=== PATIENT | male | born 1965 | race Caucasian/White ===

== ENCOUNTER → 2017-10-07 17:24 | Outpatient (CLI) | payer BC, SELFPAY | PROVIDERS: Family Provider Family Medicine; PCP Family Medicine; Visit Provider Family Medicine | DX: N39.0 Urinary tract infection, site not specified (principal) | CPT/HCPCS: 87086; 87088; 87186 ==

== ENCOUNTER 2019-02-04 07:55 | Inpatient (IN) | payer BC, OTHER, SELFPAY ==
[2019-01-22 14:33] VITALS: BP 122/66; PULSE 76; RESP 17; TEMP 36.9; O2SAT 98; BMI 37.2
--- NOTE | 2019-01-22 15:30 | RAD_ITS ---
STUDY: MULTIPLE LENGTH STUDY SCANOGRAM. REASON FOR EXAM: Male, 53 years old. Prior left hip replacement. TECHNIQUE: Frontal views of both lower extremities were obtained. COMPARISON: None. FINDINGS: The patient is status post left hip replacement. An osteochondroma is seen along the medial aspect of the mid shaft of the left femur. There is shortening of the right lower extremity of approximately 1.5 cm as compared to the left side. RAD/Bone Length IMPRESSION: Asymmetry of the bone length of the lower extremities with the right lower extremity being 1.5 cm shorter than the left. Electronically Signed: Juan Ayala, at 9:07 EDT , Service support ,
[2019-01-22 16:32] LABS: Absolute Neutrophil Count 5.5 X10^3/uL (2.0-7.7); Basophil# 0.03 X10^3/uL; Basophil% 0.4 % (0-1); Eosinophil# 0.07 X10^3/uL; Eosinophils% 0.9 % (0-5); Hematocrit 46.2 % (40-54); Hemoglobin 15.8 g/dL (13.0-16.5); Lymphocyte % 19.8 % (19-41); Mean Corp Hgb Conc 34.2 g/dL (32-36); Mean Corpuscular Volume 93.7 fL (80-94); Monocyte# 0.82 X10^3/uL; Monocyte% 10.1 % (0-10); NRBC Flagged by Analyzer 0 % (0-5); Neutrophil # 5.54 X10^3/uL (2.7-7.7); Neutrophil % 68.4 % (47-70); Platelet Count 241 K/mm3 (150-450); RBC Distribution Width SD 41.6 fl (35.1-43.9); Red Blood Count 4.93 M/mm3 (4.6-6.2); White Blood Count 8.1 K/mm3 (4.4-11.0)
[2019-01-22 16:38] LABS: Prothrombin Time (Protime)PT. 13.2 SECONDS (11.7-14.9)
[2019-01-22 16:39] LABS: Partial Thromboplast Time 26.9 Seconds (24.1-36.2)
[2019-01-22 17:00] LABS: Anion Gap 9 (5-15); BUN 18 mg/dL (7-18); BUN/Creat Ratio 15.4 RATIO (10-20); Calcium,Total 9.5 mg/dL (8.5-10.1); Chloride 103 mmol/L (98-107); Creatinine, Serum 1.17 mg/dL (0.70-1.30); EST Glomerular Filtration Rate 69 mL/min (>60); Est Glom Filt Rate - Afr Amer 84 mL/min (>60); Estimated Creatinine Clearance 82.52 ml/min; Glucose 77 mg/dL (74-106); Potassium 4.1 mmol/L (3.5-5.1); Sodium Level 141 mmol/L (136-145)
--- NOTE | 2019-01-30 11:28 | CASEMGMT ---
Call placed to patient to discuss discharge planning after upcoming surgery. Patient plans to return home with assistance from family. Patient has outpatient physical therapy set up at [facility] and will have transportation assistance. Patient already has a walker, shower seat, toilet riser, and grab bars in the bathroom (patient had a previous hip surgery). Patient has a bedroom and bathroom on the 1st level of the home. Informed patient that RN-CM will likely follow up after surgery to further assist with any discharge needs that may arise. Karla Rueda LPN Clinical Support
[2019-02-04] VITALS (12 sets, daily range): BP systolic 108–120; BP diastolic 65–82; PULSE 59–88; RESP 14–18; TEMP 36–37.2; O2SAT 77–100; BMI 37.2
[2019-02-04] MEDS: Celecoxib 200 MG Capsule 400 MG PO (08:34)
[2019-02-04] MEDS: Acetaminophen 500 MG Tablet 1000 MG PO ×3 (08:34→22:49)
[2019-02-04] MEDS: Gabapentin 600 MG Tablet PO (08:35)
[2019-02-04] MEDS: Scopolamine 1mg/72hr Patch 1 PATCH TRANSDERM. (08:36)
[2019-02-04] MEDS: Magnesium Sulfate 4gm/100mL 4 GM/100 ML IV.SOLN. IV (08:39)
[2019-02-04 08:56] LABS: Bedside Glucose 89 mg/dL (70-110)
[2019-02-04] MEDS: Lactated Ringers 1,000 ML 999 ML IV (10:45)
--- NOTE | 2019-02-04 10:45 | RAD_ITS ---
STUDY: X-RAY - PELVIS AND RIGHT HIP REASON FOR EXAM: Postop. TECHNIQUE: 2 views of the pelvis and hip. COMPARISON: Intraoperative images obtained earlier the same day. FINDINGS: There is soft tissue gas adjacent to the right hip from recent surgery. Normal bilateral superior and inferior pubic rami. Normal pubic symphysis. Normal bilateral ischial tuberosities. There is a right hip arthroplasty without evidence of complication. RAD/Hip Min 2 Views (Portable) IMPRESSION: Uncomplicated right hip arthroplasty. Electronically Signed: Alex Jones MD at 14:22 EDT Tel , Service support ,
--- NOTE | 2019-02-04 11:44 | RAD_ITS ---
STUDY: X-RAY - RIGHT HIP REASON FOR EXAM: Fluoroscopy for right hip arthroplasty. TECHNIQUE: 3 intraoperative images of the right hip. COMPARISON: None. FINDINGS: There is a right hip arthroplasty without evidence complication. Electronically Signed: Alex Jones MD at 14:22 EDT Tel , Service support , RAD/Hip 1 view with Pelvis
--- NOTE | 2019-02-04 12:11 | PCM.OPRPT ---
Report of Operation Date of Procedure: 02/04/19 Pre-Operative Diagnosis: Right hip primary osteoarthritis Post-Operative Diagnosis: Right hip primary osteoarthritis Surgery/Procedure Performed:: Right direct anterior minimally invasive total hip replacement Description of Surgical Findings:: Stable hip. We were unable to fully make up the patient's 1/2 cm leg length discrepancy. We lengthened to what we felt was appropriate based on patient's preoperative anatomy and soft tissue tensioning. color adviser: Gretel Patino Type of Anesthesia:: Spinal Anesthesiologist: Kevin Moore Special Medications: 2 g Ancef, 1 g TXA at incision, 1 g TXA closure, 10 mg Decadron, joint cocktail (5 mg Duramorph, 30 mL of 0.5% Ropivicaine, 1000 units of epinephrine, 30 mg of Toradol) Specimen's removed: Bony cuts Estimated Blood Loss (mL): 250 Fluids Replaced: 1300 mL crystalloid Description of Procedure: Components used: 1. Accolade 2 [place] femoral stem size 5 132? 2. [place] trident 2 acetabular shell size 60 mm 3. [place] X3 polyethylene g 4. [place] Biolox delta 36mm, +5mm femoral head Brief history operative indications: 53 yo M who failed conservative measures for their hip osteoarthritis. X-rays were consistent with osteoarthritis including joint space narrowing, osteophyte formation and subchondral cysts. Total hip replacement was discussed with the patient with risks and benefits including but not limited to blood loss, DVTs, PEs, neurovascular damage, dislocation, general risks of anesthesia including loss of life. Patient demonstrated an understanding medical clearance is obtained the patient was consented for surgery. Procedure: On the date of procedure the patient's R hip was marked in the preoperative area. Patient was then taken back to the operating room where anesthesia assumed control of the C-spine and airway and administered anesthetic. Patient was transferred to the operating table and placed in the supine position. The hips were placed at the break of the bed and a sacral bump was placed. The R lower extremity was then prepped out in a sterile fashion using chlorhexidine while the surgeon scrubbed. The PA was vital in the positioning of the patient. Upon reentering the room the R lower extremity was draped in the standard orthopedic fashion and the incision was marked. A timeout was called and everyone agreed upon the side, the site, the procedure be performed, antibody given, and patient's identity. At this time incision was made through skin, subcutaneous tissue, and fat down to fascia. The fascia was then incised and the TFL was retracted laterally. A retractor was placed on the lateral border of the femoral neck. Attention was directed to the inferior portion of the approach and all crossing vessels were identified and appropriately coagulated. A retractor was then placed on the medial portion of the femoral neck. The anterior capsule was then cleared of all soft tissue and then H shaped capsulotomy was made. The retractors were then placed inside the capsule. The femoral neck was identified and a cleanup cut was made. At this time a power corkscrew was used to remove the femoral head. Attention was then turned toward the acetabulum where the soft tissues were appropriately retracted and the acetabulum was sequentially reamed to 60 mm. A 60 mm cup was then selected and impacted into place. Acetabular liner was impacted into place and locking mechanism was verified. The position of the acetabular cup was then verified under live fluoroscopy. Attention was then turned to the femur. Soft tissue releases on the medial and lateral femoral neck were appropriately done, the leg was externally rotated and lateralized. A [place]illa retractor was placed medially and proximally to the greater trochanter this allowed appropriate visualization and exposure of the femoral canal. Rongeour was then used to remove excess lateral bone. A canal finder and entry broach were used to open the proximal canal. Once we verified we were down the femoral canal we subsequently broached up to a size 5 femur. The appropriate neck was placed in the previously selected head was trialed during the trialing based on preoperative radiographs showing a 1.5 cm leg length discrepancy in patient's anatomy we sequentially trialed up to a 5 mm neck. At that point despite not making up the entire 1.5 cm leg length discrepancy patient's anatomy was restored. Also the tension of the soft tissues was such that any further lengthening would not be well tolerated due to the tightness. Chest reexamining his preoperative x-rays and the contralateral hip it was felt that the contralateral hip is been over lengthened at the time of his left hip replacement. So therefore, we restored as much length is was felt to be possible to match his anatomy and appropriate tensioning of the soft tissues. Traction was pulled and the hip was reduced with internal rotation. Once it was appropriately reduced and stability was checked. There was minimal shuck, and appropriate stability with hyperextension and external rotation as well as with 90? flexion and internal rotation. Fluoroscopy was then also used to verify the position of the components and leg lengths using the contralateral side for comparison. The trial components were then dislocated the proximal femur was again exposed and the components were removed from the wound. The final components were verified and opened. The wound was copiously irrigated out with normal saline. The acetabulum was checked for any residual debris. The final components were placed and impacted. Traction and internal rotation were again used to reduce the hip. After adequate reduction the hip remained stable with appropriate leg lengths. The final components were once again checked with live fluoroscopy and were found to be satisfactory. The wound was then copiously irrigated with normal saline once more, and hemostasis was obtained. Closure was then done using #1 Vicryl runner to close the fascia. A 2-0 vicryl interuppted sutures were used to close the subcutaneous skin. A 3-0 Monocryl and Steri-Strips were used for final skin closure. A Silverlon dressing was placed. Patient was awakened by anesthesia and transferred to the [facility]. Patient was then transferred to the PACU for recovery. Postoperative plan: Patient will get 24 hours postop antibiotics. Patient will get in-house physical therapy and will be weight-bear as tolerated. Patient will follow up in office in 2 weeks for a wound check and x-rays. Grafts/Implants Used: [place] - Complications No intraoperative complications - Admit VTE Documentation VTE Present on Admission: No VTE Mechan Device Prophylaxis: SCD's, Thigh High ARON Hose VTE Pharm Prophylaxis ordered?: Yes
[2019-02-04] MEDS: Lactated Ringers 1,000 ML 125 ML IV (14:50)
[2019-02-04] MEDS: Ensure Surgery 237 ML LIQUID PO (16:37)
[2019-02-04] MEDS: Cefazolin 1 GM/50 ML BAG IV (18:38)
[2019-02-04] MEDS: Aspirin 81 MG TAB.CHEW PO (22:49)
[2019-02-04] MEDS: Senna/Docusate Sodium 1 Tablet 2 TABLET PO (22:49)
[2019-02-05] MEDS: Cefazolin 1 GM/50 ML BAG IV (03:20)
[2019-02-05 03:25] VITALS: BP 113/70; PULSE 69; RESP 18; TEMP 36.5; O2SAT 94
[2019-02-05 06:04] LABS: Hematocrit 40.4 % (40-54); Hemoglobin 13.9 g/dL (13.0-16.5); Mean Corp Hgb Conc 34.4 g/dL (32-36); Mean Corpuscular Hgb 32.5 pg (27.0-32.0); Mean Corpuscular Volume 94.4 fL (80-94); Mean Platelet Vol. 8.6 fl (6.2-12.0); Platelet Count 205 K/mm3 (150-450); RBC Distribution Width CV 11.9 % (11.6-14.6); RBC Distribution Width SD 41.2 fl (35.1-43.9); Red Blood Count 4.28 M/mm3 (4.6-6.2); White Blood Count 20.8 K/mm3 (4.4-11.0)
[2019-02-05] MEDS: 0.9% NaCl Peripheral Flush Adult/Peds IV (06:26)
[2019-02-05] MEDS: Acetaminophen 500 MG Tablet 1000 MG PO (06:32)
[2019-02-05 06:47] LABS: Anion Gap 6 (5-15); BUN 19 mg/dL (7-18); BUN/Creat Ratio 15.6 RATIO (10-20); Calcium,Total 8.8 mg/dL (8.5-10.1); Chloride 107 mmol/L (98-107); Creatinine, Serum 1.22 mg/dL (0.70-1.30); EST Glomerular Filtration Rate 66 mL/min (>60); Est Glom Filt Rate - Afr Amer 80 mL/min (>60); Estimated Creatinine Clearance 79.14 ml/min; Glucose 105 mg/dL (74-106); Potassium 4.4 mmol/L (3.5-5.1); Sodium Level 140 mmol/L (136-145)
[2019-02-05 07:29] VITALS: BP 118/84; PULSE 61; RESP 18; TEMP 36.6; O2SAT 95
[2019-02-05] MEDS: Ensure Surgery 237 ML LIQUID PO (07:40)
[2019-02-05] MEDS: oxyCODONE 5 MG Tablet PO (07:40)
[2019-02-05] MEDS: Aspirin 81 MG TAB.CHEW PO (07:40)
[2019-02-05] MEDS: Senna/Docusate Sodium 1 Tablet 2 TABLET PO (07:41)
[2019-02-05] MEDS: Famotidine 20 MG Tablet PO (07:41)
[2019-02-05] MEDS: Lisinopril 20 MG Tablet PO (07:41)
[2019-02-05] MEDS: hydroCHLOROthiazide 12.5mg 12.5 MG PO (07:41)
--- NOTE | 2019-02-05 09:19 | PCM.PN.ORT ---
Subjective: The patient was sitting in bedside chair upon examination. Patient denies any chest pain, shortness of breath, dizziness, lightheadedness, nausea or vomiting, or calf pain. Pain is controlled on medications. No adverse overnight events. Patient is doing very well with regards to physical therapy. He has been up walking the halls. His pain is been well controlled. Patient is wishing to go home today. Objective: Vital signs stable and afebrile. Patient is able to plantarflex and dorsiflex actively. Sensation is intact to light touch to saphenous, sural, superficial and deep peroneal, and tibial distribution. Dressing is clean dry and intact. Negative Homans bilaterally, negative signs and symptoms of DVT. - Physical Exam General: Alert, Oriented x3, Cooperative, No apparent distress Vital Signs Temp Pulse Resp BP Pulse Ox 97.9 F 61 18 118/84 H 95 02/05/19 07:29 02/05/19 07:29 02/05/19 07:29 02/05/19 07:29 02/05/19 07:29 Oxygen Flow Rate (L/min) 6 Oxygen Delivery Method Room Air Weight: 128.1 kg Body Mass Index (BMI) 37.2 Intake and Output for Last 24 Hours 02/03/19 02/04/19 02/05/19 23:59 23:59 23:59 Intake Total 3056 / 3056 431 / 431 Output Total 1850 / 1850 1050 / 1050 Balance 1206 / 1206 -619 / -619 Laboratory Tests Past 24 Hrs 02/05/19 02/05/19 05:30 05:30 WBC 20.8 H RBC 4.28 L Hgb 13.9 Hct 40.4 MCV 94.4 H MCH 32.5 H MCHC 34.4 RDW Std Deviation 41.2 RDW Coeff of Can 11.9 Plt Count 205 MPV 8.6 Sodium 140 Potassium 4.4 Chloride 107 Carbon Dioxide 27.0 Anion Gap 6 BUN 19 H Creatinine 1.22 Estim Creat Clear Calc 79.14 Est GFR (MDRD) Af Amer 80 Est GFR (MDRD) Non-Af 66 BUN/Creatinine Ratio 15.6 Glucose 105 Calcium 8.8 Medical Necessity - Tobacco Use Smoking Status: Never smoker Tobacco Use: Chew Assessment/Plan 1. S/P right direct anterior total hip arthroplasty POD #1 2. Continue Pain Medications: Tylenol and OxyIR 3. DVT Prophylaxis: Aspirin 81 mg twice daily for 4 weeks postoperatively 4. PT/OT: Weightbearing as tolerated 5. H & H: 13.9/40.4, asymptomatic 6. Reactive leukocytosis: Currently 20.8, afebrile. Patient did receive Decadron intraoperatively 7. Encouraged Incentive Spirometry 8. Disposition: Orthopedically stable, plan will be for discharge home today. Prescriptions will be attached to chart. Patient will follow-up per postop instructions. Patient does have outpatient physical therapy established.
--- NOTE | 2019-02-05 09:27 | DCINST_ITS ---
Discharge Diet: No Restrictions Discharge Activity: May Not Drive - while taking narcotic pain medications. May shower in (days): 1 - Turn dressing away from water Ice area for (Minutes): 20 - Every 1-2 hours while awake Weight Bearing Status: Weight bearing as tolerated Elevate: Operative Extremity Additional Activity Instructions:: Wear elastic stockings for 2 weeks. DO NOT use alcohol with narcotic pain medication. DO NOT make important decisions while taking narcotic medication. If you have problems with taking your medication (rash, itching, nausea, etc.) call the office at once. Call your doctor if your incision/area has: Increased Pain/ Swelling, Increased Redness, Foul Smelling Discharge Call your doctor if you observe: Fever of 101 or Higher Remove Dressing in (days):: 4 - Okay to remove dressing on February 09, 2019 Additional Instructions: Follow with orthopedics postop instructions Allergies/Adverse Reactions: Allergies No Known Allergies Allergy (Verified 02/04/19 08:21) Medications to take at Discharge Lisinopril/Hydrochlorothiazide [Lisinopril-Hctz 20-12.5 mg Tab] 1 ea PO DAILY 01/22/19 Sildenafil Citrate [Viagra] 50 mg PO PRN PRN 01/22/19 Acetaminophen [Tylenol] 1,000 mg PO Q8 #100 tab 02/05/19 Aspirin [Aspirin, Baby] 81 mg PO BIDCM #60 tab 02/05/19 Famotidine [Pepcid] 20 mg PO DAILY #30 tab 02/05/19 Meloxicam [Mobic] 7.5 mg PO BID tablet 02/05/19 Oxycodone [Oxyir] 5 - 10 mg PO Q4H PRN PRN 4 Days #30 tab 02/05/19 Senna/Docusate Sodium [Senokot-S] 2 tab PO BID #20 tab 02/05/19 The following prescriptions were given: Aspirin [Aspirin, Baby] 81 mg PO BIDCM #60 tab Prescription Printed Oxycodone [Oxyir] 5 - 10 mg PO Q4H PRN PRN 4 Days #30 tab PRN Reason: Mod-Severe Pain (4-10/) Prescription Printed Famotidine [Pepcid] 20 mg PO DAILY #30 tab Prescription Printed Senna/Docusate Sodium [Senokot-S] 2 tab PO BID #20 tab Prescription Printed Acetaminophen [Tylenol] 1,000 mg PO Q8 #100 tab Prescription Printed Primary Care Physician: Rai Mcrcacken MD [Primary Care Provider] - Test Results: Test results from this visit will be discussed in further detail at your follow- up appointment, if applicable. Please Follow Up With: [facility] When: 02/09/19 @ 9:00 am Please Follow Up With: Pablito Braden PA-C When: 02/18/19 @ 9:00 am
[2019-02-05] MEDS: Meloxicam 7.5 MG Tablet PO (10:02)
--- NOTE | 2019-02-05 10:20 | CASEMGMT ---
MARGARETTE TYLER Face to Face with patient for initial transition planning/care coordination assessment. RN NAYELI introduced self and role at [facility]. Patient lying in bed, alert and oriented. Patient willing to participate in assessment and is able to answer all questions appropriately. Care providers, pharmacy, and demographics verified. Patient wishes to discharge home and is setup with [facility] for outpatient therapy. Patient states he has no further needs or concerns at this time. CM to follow for discharge planning needs that may arise. PCP: Nawaf Specialists: estefania Mota Preferred Pharmacy: [facility] Insurance: [employer] Prescription Benefit: yes Living Will/HPOA: none LNOK: Living Arrangements: Patient lives with in 1 story home with 2 steps to enter the home. Transportation: DME/HHC: Patient has raised toilet and walker. Patient has outpatient therapy setup with [facility]. Disposition Plan: Patient to discharge home with outpatient therapy, family support, and follow-up plans in place. Lindsey CANDELARIO, RN, CM
== END 2019-02-05 10:42 | disposition home or self-care (01) | DRG 470 ==
LOC: ACINP 08:47 → MS3 10:01
PROVIDERS: Admitting Provider Specialist; Family Provider Family Medicine; PCP Family Medicine; Referring Provider Specialist; Visit Provider Specialist
PROC: 0SR90JA Replacement of Right Hip Joint with Synthetic Substitute, Uncemented, Open Approach (ICD-10-PCS; CPT 27284; principal; 2019-02-04 10:05)
DX: M16.11 Unilateral primary osteoarthritis, right hip (principal)
CPT/HCPCS: 36415; 73501; 73502; 76000; 77073; 80048; 82962; 85025; 85027; 85610; 85730; 87081; 97110; 97161; 97166; 97530; 99406; C1776; J7120; A4216

== ENCOUNTER 2020-05-24 21:48 | Emergency (ER) | payer OTHER, SELFPAY ==
[2019-02-04 14:39] VITALS: BMI 37.2
[2020-05-24 21:49] VITALS: BP 118/85; PULSE 90; RESP 18; TEMP 36.4; O2SAT 98; BMI 40.6
--- NOTE | 2020-05-24 22:25 | RAD_ITS ---
STUDY: X-RAY - RIGHT KNEE REASON FOR EXAM: Male, 54 years old. RIGHT KNEE PAIN AFTER FALLING IN THE [place] WHILE HUNTING. TECHNIQUE: 4 view(s) of the knee. COMPARISON: None. FINDINGS: Normal visualized distal femur. Normal visualized proximal tibia and fibula. Normal proximal tibiofibular articulation. Normal medial femorotibial compartment. Normal lateral femorotibial compartment. Normal patellofemoral articulation. There is a moderate volume joint effusion. 2 radiodensities noted subcutaneously in the suprapatellar region. RAD/Knee 4 or More Views IMPRESSION: Moderate suprapatellar effusion. 2 subcutaneous calcifications or foreign bodies as above. Clinical correlation required. Electronically Signed: Eduardo Ogden MD at 23:03 EST , Service support ,
--- NOTE | 2020-05-24 22:56 | ED.VIS.GEN ---
History of Present Illness Chief Complaint: Lower Extremity Injury Narrative: Patient is a 54-year-old male who presents with right knee pain. 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 He slipped and twisted his right knee. He felt something pop. He has been unable to straighten his leg since that time. No other injuries. He did not hit his head no loss of consciousness no chest abdominal back pain or injury to the other extremities. Past Medical History - Allergies and Home Meds Allergies/Adverse Reactions: Allergies No Known Allergies Allergy (Verified 02/04/19 08:21) Primary Care Physician: Rai Mccracken MD [Primary Care Provider] - Past Medical History: - - Hypertension Smoking Status: Never smoker Review of Systems All systems negative except as indicated General: Denies: Fever Eyes: Denies: Visual changes - bilaterally ENT: Denies: Bilateral ear pain Cardiovascular: Denies: Chest pain Respiratory: Denies: Dyspnea Gastrointestinal: Denies: Nausea, Vomiting Musculoskeletal: Reports: Extremity Pain Skin: Denies: Rash Neurological: Denies: Headache Hematologic: Denies: Easy bruising Allergy: Denies: Uticaria Physical Exam Vital Signs/Narrative: Vital Signs Temp Pulse Resp BP Pulse Ox 05/24/20 21:49 97.5 F L 90 18 118/85 H 98 Inital Vital Signs reviewed: Yes General: Well nourished, Well developed Head: Normocephalic Eyes: EOMI ENT: Moist mucous membranes Neck: Supple Cardiovascular: Regular rate Respiratory: No distress Extremities: - - Mild soft tissue swelling of the knee. No large effusion. Patient has focal severe tenderness above the patella or the quadriceps tendon and there does seem to be a defect. Patient is unable to hold his knee in extension. Skin: Normal color Neurological: Alert Psychological: Normal affect Diagnostic/Tx/Re-eval Impressions Knee X-Ray 05/24/20 22:25 IMPRESSION: Moderate suprapatellar effusion. 2 subcutaneous calcifications or foreign bodies as above. Clinical correlation required. Electronically Signed: Eduardo Ogden MD at 23:03 EST , Service support , 05/24/20 22:25 Knee 4 or More Views [RAD] Stat - Medical Decision Making Patient's clinical presentation is most suggestive of quadriceps tendon rupture. Tray shows a suprapatellar effusion and subcutaneous calcifications. These are not foreign bodies he has no open wound. Patient was given a knee immobilizer. I spoke to Dr. Ghosh who is on-call for orthopedics. Patient will follow-up as an outpatient. ED Disposition - Plan for ED Patient: Disposition: Home or Assisted Living Diagnosis: Quadriceps tendon rupture Prescriptions: Hydrocodone Bitart/Apap 5-325 [[place] 5MG-325MG] 1 tab PO Q6H PRN PRN 3 Days #10 tab PRN Reason: Pain Prescription Printed Referrals: Rai Mccracken MD [Primary Care Provider] - Arlene Ghosh DO [STAFF PHYSICIAN] - Additional Instructions: Your exam is most concerning for a tear of your quadriceps tendon. Wear the knee immobilizer, you are okay to bear weight as tolerated. Follow-up with orthopedics. Take all medications as prescribed.
[2020-05-25 00:22] VITALS: BP 137/89; PULSE 78; RESP 16; O2SAT 98
== END 2020-05-25 00:23 | disposition home or self-care (01) ==
PROVIDERS: Emergency Provider Emergency Medicine; PCP Family Medicine
DX: S76.111A Strain of right quadriceps muscle, fascia and tendon, initial encounter (principal); I10 Essential (primary) hypertension; Z79.899 Other long term (current) drug therapy; X50.1XXA Overexertion from prolonged static or awkward postures, initial encounter; Y93.01 Activity, walking, marching and hiking; Y92.828 Other wilderness area as the place of occurrence of the external cause; Y99.8 Other external cause status
CPT/HCPCS: 73564; 99284

== ENCOUNTER 2020-06-01 12:16 | Day surgery (SDC) | payer OTHER, SELFPAY ==
[2020-06-01] VITALS (10 sets, daily range): BP systolic 133–159; BP diastolic 80–104; PULSE 78–98; RESP 16–18; TEMP 36.2–37.7; O2SAT 91–96; BMI 39.1
--- NOTE | 2020-06-01 12:17 | HP_ITS ---
I have re-examined the patient. There are no clinical changes since date of exam. Intake Intake Visit Reasons: Right knee Chief Complaint: RIGHT TOTAL HIP Allergies No Known Allergies Allergy (Verified 02/04/19 08:21) [facility] Social History (Updated 05/26/20 @ 16:[address] Arlene Ghosh, ) Smoking Status: Never smoker HPI Right knee: Surgical H&P: Yes Details: Parts of this documentation were recorded by a scribe, this documentation accurately reflects the service provided and the decisions made by me, Dr. Arlene Ghosh DO 05/26/20 1005. LILLIAM HOLLINS is a 54 year old M NEW patient here today for right quad injury. States that he was hunting on 05/24/2020 and he slipped on ice and he fell and heard a pop over his knee and then he fell down a hill. He wasnt able to bear full weight on his right leg. Denies any hip pain today. He states that most of his pain is above his right patella. Denies any groin pain or hip pain. He denies any pain medication. He has a hx of BL hip replacements first one was when he was 46 by [facility] which was the left hip and then he had the right hip replaced [address] Haq at [facility]. Ortho Exam General General: Yes no acute distress Neurologic: Yes alert, Yes oriented x3 Psychologic: Yes reasonable and appropriate Right Knee 1+: Effusion Knee ROM: No ROM-Extension -20 to 0, No ROM-Passive Extension -10 to 0 KNEE: unable to preform full extension of the right leg quad tendon rupture. palpable quad deformity Assessment & Plan Problems 1. Rupture of right quadriceps tendon, initial encounter S76.111A Plan Personally reviewed patients x-rays of the right knee. Patient educated that his patella is sitting high and there are 2 small bone chips seen on x-ray which is the avulsion of the quad tendon. Patient educated that he does have a quad tendon rupture. Reviewed the pre-operative plans with the patient. Risks and benefits of the procedure were fully explained, including but not limited to infection, neurovascular injury, continued pain, arthritis, stiffness, need for further surgery, re-injury, DVT, PE, general risks of anesthesia, and loss of limb or life. The patient understands all the risks and does wish to proceed with written consent for right open quad tendon repair and surgery as indicated with arthrex. Patient educated that he does have a risk of infection and risk for decreased healing d/t his use of chewing tobacco. Will schedule his surgery for 06/01/2020. Follow up post op or sooner if pain, swelling, numbness or associated symptoms, or concerns develop. All questions answered. Patient in agreement of plan. Coding Level of Care Code Off vis,new,level 3 Diagnoses Rupture of right quadriceps tendon, initial encounter S76.111A ??Encounter type: initial encounter
[2020-06-01] MEDS: Lactated Ringers 1,000 ML 100 ML IV (13:00)
[2020-06-01] MEDS: Mupirocin Ointment 22gm Tube 1 APPLIC (14:42)
[2020-06-01] MEDS: Cefazolin 2 GM in 0.9% Normal Saline 100 ML IV (14:58)
--- NOTE | 2020-06-01 15:09 | OP.PCM_ITS ---
Report of Operation Date of Procedure: 06/01/20 Pre-Operative Diagnosis: right knee quad tendon tear Post-Operative Diagnosis: same Surgery/Procedure Performed:: Open quad repair nursing program director: Yifan Jeong Type of Anesthesia:: General Anesthesiologist: Kevin Moore Estimated Blood Loss (mL): min Fluids Replaced: 1100cc lr Description of Procedure: Preop note Patient is a 50-year-old male who sustained an right flexion injury to an inability to extend his knee after an injury at home. Patient came in obvious quad tendon defect with low-lying patella. Risk benefits alternatives surgery discussed with patient. Risk including but not limited to blood loss, blood clot, infection, neurovascular, failure procedure, loss of life and loss of limb. Continued pain stiffness need for reoperation were also discussed with patient. Patient is aware would like proceed with the quad tendon repair Patient was obviously unable to extend his right knee during our physical exam. brusing and PE consistent with complete quad tendon rupture. Operative note Patient seen examined preop holding area. Right knee was marked. Patient brought to the operating placed supine on the operating table. Signed, anesthesia, antibiotics were ore feeder. The right leg was prepped and draped usual sterile technique with a tourniquet around his upper thigh. All bony promises well-padded SCDs placed on his contralateral limb. Marked our incision for our vertical incision centrally located on the patella proximally. The right then leg was then elevated exsanguinated tourniquet raised her pressure of 250 torr. Timeout was performed. We then made a linear incision vertical incision starting about the superior pole of the patella of a centimeter to 2 cm proximal to that Down about 3 to 4 cm. We then dissected down to the peritenon which was excised which was transected from the tear in a horizontal fashion the quad tendon was then debrided with its insertion as well as the degenerative aspects of the tear. We then debrided the superior pole of patella we then drilled for our 475 push lock suture swivel locks arthrex quad repair and debrided any chronic tissue to stable bed. We then did locking krakow stitches up the quad tendon with 2 2 fiber tape brought the two ends into each anchor and then placed the anchor into the drilled holes after tapping the holes in standard technique. We had good reduction of the quad tendon without tension. We then oversewed with the fiber stitch that was through the eyelet to reinforce the repair. We then repaired the retinaculum as both the medial lateral retinaculum's were torn. We closed the retinaculum medially and laterall with fiberwire and we then irrigated and please note that multiple times throughout the case we did irrigate the knee with copious nonsterile saline. The skin was closed 2-0 Vicryl and the subcuticularly and the skin was closed with julito. Sterile dressings were applied and brace locked in extension. Total tourniquet was deflated.. Patient taught procedure well no complications return to recovery room stable condition Postoperative note Toe-touch weight bearing right leg locked in extension elevate toes above nose, ankle pumps, ice as needed for pain Call with increased pain numbness tingling further issue arise follow up in 2 weeks, call with concerns Pharmacy has prescriptions discussed with family Joseph elliott This note was generated with [employer] dictation software. It may contain incorrect words, spelling, and punctuation that were not noted in checking the note before signing.
--- NOTE | 2020-06-01 15:09 | PCM.DC.ORTHO ---
Discharge Diet: No Restrictions - Brace locked in extension at all times Follow-up on Saturday for dressing change and brace adjustment with Sawyer, elevate ankle pumps, call with concerns, pharmacy has prescriptions, ice , ankle pumps, brace locked in extension at all times during ambulation and at night and at rest Discharge Activity: May Not Drive May shower in (days): 1 Ice area for (Minutes): 20 - Every hour while awake. Weight Bearing Status: Weight bearing as tolerated Keep extremity elevated above heart level: Operative Extremity Call your doctor if your incision/area has: Continuous Slow Oozing, Sudden Increased Bleeding, Increased Pain/ Swelling, Increased Redness, Foul Smelling Discharge Call your doctor if you observe: Fever of 101 or Higher, Coldness, Increased Pain, Numbness or Tingling, Change in Color, Calf discomfort Allergies/Adverse Reactions: Allergies No Known Allergies Allergy (Verified 06/01/20 12:45) Medications to take at Discharge Lisinopril/Hydrochlorothiazide [Lisinopril-Hctz 20-12.5 mg Tab] 1 ea PO DAILY 01/22/19 Oxycodone HCl/Acetaminophen [Percocet 5/325] 1 - 2 tab PO Q6H PRN PRN 5 Days #28 tab 06/01/20 The following prescriptions were given: Oxycodone HCl/Acetaminophen [Percocet 5/325] 1 - 2 tab PO Q6H PRN PRN 5 Days #28 tab PRN Reason: Pain Transmission Status: Received by [facility] Primary Care Physician: Rai Mccracken MD [Primary Care Provider] - Test Results: Test results from this visit will be discussed in further detail at your follow-up appointment, if applicable. Please Follow Up With: Arlene Ghosh, - [phone]
[2020-06-01] MEDS: HYDROcodone Bitartrate/Apap 5/325 Tablet PO (18:29)
== END 2020-06-01 19:26 | disposition home or self-care (01) ==
LOC: SDC 12:17 → AC 12:17
PROVIDERS: PCP Family Medicine; Referring Provider Orthopaedic Surgery; Visit Provider Orthopaedic Surgery
PROC: (CPT 27664; principal; 2020-06-01 14:15)
DX: S76.111A Strain of right quadriceps muscle, fascia and tendon, initial encounter (principal); I10 Essential (primary) hypertension; F17.220 Nicotine dependence, chewing tobacco, uncomplicated; Z79.899 Other long term (current) drug therapy; Z20.828 Contact with and (suspected) exposure to other viral communicable diseases; W00.0XXA Fall on same level due to ice and snow, initial encounter; Y93.89 Activity, other specified; Y92.89 Other specified places as the place of occurrence of the external cause; Y99.8 Other external cause status
CPT/HCPCS: 27664; 87426; C1713; C9803; J7120; J2405

== ENCOUNTER 2020-09-16 08:00 | Outpatient (RCR) | payer OTHER, SELFPAY ==
--- NOTE | 2020-07-04 12:54 | HP.PTEVAL ---
Patient's Visit Information LILLIAM HOLLINS is a 54 year old M referred to Physical Therapy by DANIELA Cummings with a diagnosis of Post op right quad tendon repair early May. Date of Evaluation: 07/04/20 Physical Therapist: Kanu Lerner, SURENDRAT, OCS, CSCS - Visit Plan Frequency: 2-3x /Week Duration: 2 Months Plan: 2-3x/week for 6-8 weeks for:(pt is TTWB R with brace locked, may unlock at home to 30 degrees until f/u 07/11(6 weeks)). Patellar mobs. HS stretches , rollout. knee ROM (gently with flexion). strength hip, knee, ankles TTWB R LE until doctor progresses. ice as needed. scar massage whena ppropriate - Subjective Walking to tree stand and slipped adn felt pull in R knee. May 25. Went to ER adn sent to ortho. Surgery the next week quad tendon repair. In a brace locked extension ever since. Uses walker at home, uses crutch away from home with brace on. Pain is none unless twist wrong way quickly. sleep is OK with brace on and he needs to wear it. No idea when brace comes off. Saw doctor two weeks ago and sent for therapy. Is 5 weeks post op. Basic ADLs are getting done slowlya t home. 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 August 25 is tentative RTW date. Hobbie include hunting adn fishing. Has sat in van trying to find deer but unable to get susan and cannot walk through [place]. - Objective Walks TTWB R I with one crutch today i R UE brace on adn locked in ext. Changed to L UE for gait and pt did well and mod I TTWB R. Also moved crutch hand hold higher to faciltiate palm WB vs arm pit. Gentle swelling apparent proximal patella R into quad. Trasnfers bed adn chair I. Steps using L LE and curtch adn rail mod I. L LE AROM and strength WFL throughout. R hip AROM WFL, tightness at quad and HS moderately. Ankle aROM WFL B. Knee AROM R 0 ext to 65 flexion with just minor slight pulling anterior knee. Strength R knee not tested, L knee 5/5, R hip 4-/5 abd and ext and flexion with 4 degreee lag on SLR. ankles strength 5/5 B. Sensation LE WNL to gross light touch. Brace had slid downa nd we removed and redonned it in rright position today. knee otherwise dressed in compression garment, no concerns with icision voiced. Doctor note says TTWB R with brace locked, may unlock at home to 30 degrees. - Goals Goal 1:: Progress with ROM slowlya dn without increasing pain to full Goal Time Frame: 4-6 Weeks Goal 2:: Walk as allowed by doctor without gait deviations community distances. Goal Time Frame: 6-8 Weeks Goal 3:: steps without deficits reciprocally and one rail when allowed by physician Goal Time Frame: 6-8 Weeks Goal 4:: Pt feel back to 90% normal activities Goal Time Frame: 6-8 Weeks Goal 5:: Plan to return to work Goal Time Frame: 6-8 Weeks - Rehabilitation Potential Physical Therapy Diagnosis: R quad tendon repair. Rehabilitation Potential: Fair - Anticipated Interventions Patient/Client Instruction: Educate patient on: Condition, Plan of Care For the Purpose of:: To increase ROM, To improve muscle performance and motor function, To increase tolerance to activity/condition/position, To improve ability of physical actions for home/community/work/leisure Therapeutic Exercise to Include: Strength training, Flexibilty training, Gait and locomotor training, Passive ROM, Active ROM For the Purpose of:: To increase ROM, To improve muscle performance and motor function, To increase tolerance to activity/condition/position, To improve ability of physical actions for home/community/work/leisure Manual Therapy Techniques to Include: Scar massage, Mobilization For the Purpose of:: To increase ROM, To improve muscle performance and motor function, To increase tolerance to activity/condition/position Cryotherapy (ice pack, ice massage): Yes For the Purpose of:: To decrease swelling/inflammation Thank you for the opportunity to evaluate your patient. For Medicare and Medicare HMO plans, please review the plan of care and approve it. It will need to be FAXED BACK to us at [phone] for Medicare purposes. For Medicare only, by signing this I certify the plan of care. Please let me know if there are questions or concerns regarding this plan of care. Physician Signature: Date:
--- NOTE | 2020-08-01 09:23 | HP.PTREVAL ---
DANIELA Cummings, It has been my pleasure to treat LILLIAM HOLLINS over the last 9 visits for Post op right quad tendon repair early May. Please see the progress note below for an update on the physical therapy plan of care! Subjective: Knee is going the right way. Saw doctor adn got all wB back. Not really painful but the knee cap catches every now and then. Sometimes locks up. That is improving. In brace most fo time in WB. Sleep is OK. Using cane to get around out adn about, but not needed int he house. Uses it for safety. Has been spitting wood. Hard to get down on hands and knees withotu pain. Cannot change tire on vehicle b/c can't get on floor. Only has two steps into house and does them without rail, holds door handle. To doctor in 6 weeks. Objective/Function: 0-128 a. ROM easily and without pain. Unable to SLR without quad lag today with brace on but unable to full LAQ. Obvious weakness R quad at 4- and HSC at 4/5 vs 4+ L. steps are reciprocal but needs rail forf safety adn obvious weakness descending using R. Flex R quad is slightly worse than L in prone by about 2 inche jese to buttock. Good gait pattern, cane appropriate due to weakness. Overall doing very well adn stilla ppropriate to continue as he needs to be stronger. Plan Plan: 3x/week for 3-4 weeks for. 1. R LE quad and HS and hip strength adn functional progression. 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 Goals Goal 1:: Progress with ROM slowlya dn without increasing pain to full Goal Time Frame: 4-6 Weeks Goal Progress: Progressing Goal 2:: Walk as allowed by doctor without gait deviations community distances. Goal Time Frame: 6-8 Weeks Goal Progress: Goal Met, cane Goal 3:: steps without deficits reciprocally and one rail when allowed by physician Goal Time Frame: 6-8 Weeks Goal Progress: Progressing, weak. Goal 4:: Pt feel back to 90% normal activities Goal Time Frame: 6-8 Weeks Goal Progress: 50% Goal 5:: Plan to return to work Goal Time Frame: 6-8 Weeks Goal Progress: Progressing Goal 6:: Trasnfer off floor I and confidently Goal Time Frame: 2-4 Weeks Goal Progress: NEW GOAL Anticipated Interventions Patient/Client Instruction: Educate patient on: Condition, Plan of Care For the Purpose of:: To increase ROM, To improve muscle performance and motor function, To increase tolerance to activity/condition/position, To improve ability of physical actions for home/community/work/leisure Therapeutic Exercise to Include: Strength training, Flexibilty training, Gait and locomotor training, Passive ROM, Active ROM For the Purpose of:: To increase ROM, To improve muscle performance and motor function, To increase tolerance to activity/condition/position, To improve ability of physical actions for home/community/work/leisure Manual Therapy Techniques to Include: Scar massage, Mobilization For the Purpose of:: To increase ROM, To improve muscle performance and motor function, To increase tolerance to activity/condition/position Cryotherapy (ice pack, ice massage): Yes For the Purpose of:: To decrease swelling/inflammation Please do not hesitate to contact me at [phone] by phone or if you have questions or concerns regarding this new plan of care! Sincerely, Kanu Lerner, DPT, OCS, CSCS
--- NOTE | 2020-08-19 08:23 | HP.PTREVAL ---
DANIELA Cummings, It has been my pleasure to treat LILLIAM HOLLINS over the last 17 visits for Post op right quad tendon repair early May. Please see the progress note below for an update on the physical therapy plan of care! Subjective: NO real pain. Sees doctor on Saturday. Using cane to get around. Sleeping well. Hurts some at times if stands too much, comfortable at rest. Activities at [facility] are normal. Enjoys deer hunting but it is not the season yet. 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 HEP LAQ, streching, ROM. 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 Objective/Function: 0-130 AROM supine, -8 ext in sitting. Strength 25# R knee ext adn 75# L. HSC 10/26 B. Walks with cane adn without cane with some visual instability but safe and I. steps are reciprocal up with some obvious R wekness and needing rail. Descending prefers to use L but can use R showing eccentric weakness. Sbjectively doing well with activities but still mild instability on R LE due to quad weakness expected at [facility] rehab. approrpiate to cotninue if patient desires to continue to strength. Plan Plan: Pt to doctor Saturday and janice calles if he wishes to cotninue therapy. Will contact me after doctor appointment Saturday. Would recommend 2x/week for 4 weeks to cotnirupaue strength process R LE and gait. Goals Goal 1:: Progress with ROM slowlya dn without increasing pain to full Goal Time Frame: 4-6 Weeks Goal Progress: Goal Met Goal 2:: Walk as allowed by doctor without gait deviations community distances. Goal Time Frame: 6-8 Weeks Goal Progress: Goal Met, cane Goal 3:: steps without deficits reciprocally and one rail when allowed by physician Goal Time Frame: 6-8 Weeks Goal Progress: still weak, safe withrail Goal 4:: Pt feel back to 90% normal activities Goal Time Frame: 6-8 Weeks Goal Progress: 80-90% Goal 5:: Plan to return to work Goal Time Frame: 6-8 Weeks Goal Progress: Progressing Goal 6:: Trasnfer off floor I and confidently Goal Time Frame: 2-4 Weeks Goal Progress: NEW GOAL Anticipated Interventions Patient/Client Instruction: Educate patient on: Condition, Plan of Care For the Purpose of:: To increase ROM, To improve muscle performance and motor function, To increase tolerance to activity/condition/position, To improve ability of physical actions for home/community/work/leisure Therapeutic Exercise to Include: Strength training, Flexibilty training, Gait and locomotor training, Passive ROM, Active ROM For the Purpose of:: To increase ROM, To improve muscle performance and motor function, To increase tolerance to activity/condition/position, To improve ability of physical actions for home/community/work/leisure Manual Therapy Techniques to Include: Scar massage, Mobilization For the Purpose of:: To increase ROM, To improve muscle performance and motor function, To increase tolerance to activity/condition/position Cryotherapy (ice pack, ice massage): Yes For the Purpose of:: To decrease swelling/inflammation Please do not hesitate to contact me at [phone] by phone or if you have questions or concerns regarding this new plan of care! Sincerely, Kanu Lerner, DPT, OCS, CSCS
--- NOTE | 2020-09-16 08:26 | HP.PTDCSUM_ITS ---
It has been my pleasure to treat LILLIAM HOLLINS referred by DANIELA Cummings, with the diagnosis of Post op right quad tendon repair early May for a total of 24 visit(s). Discharge Date: 09/16/20 Please see the following information for a summary of their discharge status. Subjective: No pain lately adn alot stronger. Sees Doctor Saturday. Sleeping wel l. Doing all activities at home, still has to make sure he has something to hold onto to get up off the foor but that is not due to this injury. 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 Feels much more confident about getting off ground. Drivig is no problem. Doing normal walking at home. No more brace needed. Much more confident adn ready to be done with PT. Changed tire on van in drivewayand just needs support to get up. Right Knee Pain Intensity (Out of 10): 0 % Improvement: 90 Objective/Function: 0-135 aROm R knee. Same tightness in quad B. Walking with very slight trenelenberg R btu improving. Steps with one rail and slightly wekaer on R vs L but functional. quad strength 4 R and 5 L. HS strength 5 B. Pt doing well and is still a little weak but fuinctional and feels like he can continue himself at home Goal 1:: Progress with ROM slowlya dn without increasing pain to full Goal Progress: Goal Met Goal 2:: Walk as allowed by doctor without gait deviations community distances. Goal Progress: Goal Met Goal 3:: steps without deficits reciprocally and one rail when allowed by physician Goal Progress: Goal Met Goal 4:: Pt feel back to 90% normal activities Goal Progress: Goal Met Goal 5:: Plan to return to work Goal Progress: Goal Met Goal 6:: Trasnfer off floor I and confidently Goal Progress: Goal Met Plan: d/c Discharge Comments: Pt doing well with good ROM and improving strength. HE is functional at home and feels ready to attempt return to work which is appropriate. If there are questions or concerns regarding this patient's physical therapy, please feel free to call me at [phone]. Thank you for the referral of this patient. Sincerely, Kanu Lerner, DPT, OCS, CSCS
== END 2020-09-16 10:54 | disposition home or self-care (01) ==
LOC: PT 08:00
PROVIDERS: PCP Family Medicine; Referring Provider Physician Assistant; Visit Provider Physician Assistant
DX: Z47.89 Encounter for other orthopedic aftercare (principal)
CPT/HCPCS: 97110; 97162; 97164; 97530

== ENCOUNTER → 2020-09-22 | Outpatient (CLI) | payer OTHER, SELFPAY ==
[2020-09-22 15:32] LABS: Mucous, Urine 0 SEEN /hpf (<or=2+); Red Blood Cells-Urine 0 SEEN /hpf (0-5); Squamous Epithelial Cells - UA 0 SEEN /hpf (0-5)
[2020-09-22 15:49] LABS: Color, Urine Yellow (Yellow); Glucose, Dipstick Normal (Normal); Ketone-Dipstick Negative (Negative); Leukocyte Esterase-Dipstick 500 /ul (Negative); Nitrite-Dipstick Negative (Negative); Occult Blood-Urine 25 /ul (Negative); Protein-Dipstick 15 mg/dl (Negative); Specific Gravity, Urine 1.025 (1.002-1.030); Urine Bilirubin Dipstick Negative (Negative); Urine Clarity Cloudy (Clear); Urine Urobilinogen Normal (Normal)
[2020-09-22 15:59] LABS: Bacteria 2+ /hpf (None Seen); White Blood Cells >100 SEEN /hpf (0-5)
== END | disposition home or self-care (01) ==
LOC: LABSPEC 15:09
PROVIDERS: PCP Family Medicine; Referring Provider Family Medicine; Visit Provider Family Medicine
DX: R31.29 Other microscopic hematuria (principal)
CPT/HCPCS: 81001

== ENCOUNTER → 2021-11-09 | Outpatient (CLI) | payer OTHER, SELFPAY | END | disposition home or self-care (01) | PROVIDERS: PCP Family Medicine; Referring Provider Nurse Practitioner Family; Visit Provider Nurse Practitioner Family | DX: J06.9 Acute upper respiratory infection, unspecified (principal); Z20.822 Contact with and (suspected) exposure to COVID-19 | CPT/HCPCS: 87633; 87635; U0003; U0005 ==

== ENCOUNTER → 2022-01-30 | Outpatient (CLI) | payer OTHER, SELFPAY ==
[2022-01-30 18:17] LABS: Mucous, Urine 0 SEEN /hpf (<or=2+); Red Blood Cells-Urine 0 SEEN /hpf (0-5)
[2022-01-30 18:37] LABS: Color, Urine Yellow (Yellow); Glucose, Dipstick Normal (Normal); Ketone-Dipstick Negative (Negative); Leukocyte Esterase-Dipstick 25 /ul (Negative); Nitrite-Dipstick Negative (Negative); Occult Blood-Urine Negative /ul (Negative); Protein-Dipstick Negative (Negative); Urine Bilirubin Dipstick Negative (Negative); Urine Clarity Clear (Clear); Urine Urobilinogen Normal (Normal)
[2022-01-30 18:44] LABS: Anion Gap 6 (5-15); BUN 16 mg/dL (7-18); BUN/Creat Ratio 15.4 RATIO (10-20); Calcium,Total 9.1 mg/dL (8.5-10.1); Chloride 102 mmol/L (98-107); Cholesterol 110 mg/dL (200); Creatinine, Serum 1.04 mg/dL (0.70-1.30); EST Glomerular Filtration Rate 78 mL/min (>60); Est Glom Filt Rate - Afr Amer 95 mL/min (>60); Glucose 85 mg/dL (74-106); High Density Lipoprotein 32 mg/dL; PSA,Total - Annual Screen 2.28 ng/mL (0.00-4.00); Potassium 3.8 mmol/L (3.5-5.1); Sodium Level 137 mmol/L (136-145); Triglycerides 98 mg/dL; Very Low Density Lipoprotein 20 mg/dL (5-40)
[2022-01-30 19:59] LABS: Bacteria RARE /hpf (None Seen); Squamous Epithelial Cells - UA 0-5 SEEN /hpf (0-5); White Blood Cells 0-5 SEEN /hpf (0-5)
== END | disposition home or self-care (01) ==
LOC: MFPLAB 15:56 → LABSPEC 01-31 06:42
PROVIDERS: PCP Family Medicine; Referring Provider Family Medicine; Visit Provider Family Medicine
DX: I10 Essential (primary) hypertension (principal); Z12.5 Encounter for screening for malignant neoplasm of prostate
CPT/HCPCS: 36415; 80048; 80061; 81001; 84153; G0103

== ENCOUNTER → 2023-07-08 | Outpatient (CLI) | payer OTHER, SELFPAY | END | disposition home or self-care (01) | LOC: LABSPEC 10:07 | PROVIDERS: PCP Family Medicine; Referring Provider Nurse Practitioner Family; Visit Provider Nurse Practitioner Family | DX: N39.0 Urinary tract infection, site not specified (principal) | CPT/HCPCS: 87086 ==

== ENCOUNTER → 2023-10-16 | Outpatient (CLI) | payer OTHER, SELFPAY ==
[2023-10-16 18:08] LABS: Anion Gap 6 (5-15); BUN 15 mg/dL (7-18); BUN/Creat Ratio 13.2 RATIO (10-20); Calcium,Total 9.2 mg/dL (8.5-10.1); Chloride 104 mmol/L (98-107); Cholesterol 112 mg/dL (200); Creatinine, Serum 1.14 mg/dL (0.70-1.30); EST Glomerular Filtration Rate 70 mL/min (>60); Est Glom Filt Rate - Afr Amer 85 mL/min (>60); Glucose 94 mg/dL (74-106); High Density Lipoprotein 32 mg/dL; PSA,Total - Annual Screen 2.67 ng/mL (0.00-4.00); Potassium 3.7 mmol/L (3.5-5.1); Sodium Level 136 mmol/L (136-145); Triglycerides 146 mg/dL; Very Low Density Lipoprotein 29 mg/dL (5-40)
== END | disposition home or self-care (01) ==
LOC: MFPLAB 16:34
PROVIDERS: PCP Family Medicine; Visit Provider Family Medicine
DX: Z13.220 Encounter for screening for lipoid disorders (principal); Z12.5 Encounter for screening for malignant neoplasm of prostate; I10 Essential (primary) hypertension
CPT/HCPCS: 36415; 80048; 80061; 84153; G0103

== ENCOUNTER → 2025-01-21 | Outpatient (CLI) | payer OTHER, SELFPAY ==
[2025-01-21 10:25] LABS: Hematocrit 46.3 % (40-54); Hemoglobin 15.5 g/dL (13.0-16.5); Immature Granulocytes Count 0.070 X10^3/uL (0.0-0.0); Mean Corp Hgb Conc 33.5 g/dL (32-36); Mean Corpuscular Volume 94.9 fL (80-94); Mean Platelet Vol. 8.8 fl (6.2-12.0); NRBC Flagged by Analyzer 0 % (0-5); Platelet Count 220 K/mm3 (150-450); RBC Distribution Width CV 12.6 % (11.6-14.6); RBC Distribution Width SD 43.9 fl (35.1-43.9); Red Blood Count 4.88 M/mm3 (4.6-6.2); White Blood Count 10.4 K/mm3 (4.4-11.0)
[2025-01-21 11:03] LABS: Anion Gap 11 (5-15); BUN 19 mg/dL (4-19); BUN/Creat Ratio 14.7 RATIO (10-20); Calcium,Total 9.6 mg/dL (7.6-11.0); Carbon Dioxide 26.1 mmol/L (21.0-32.0); Chloride 101 mmol/L (98-108); Glucose 122 mg/dL (70-99); Potassium 4.3 mmol/L (3.3-5.1)
== END | disposition home or self-care (01) ==
LOC: MFPLAB 09:01
PROVIDERS: PCP Family Medicine; Visit Provider Family Medicine
DX: R06.02 Shortness of breath (principal)
CPT/HCPCS: 36415; 80048; 85025

== ENCOUNTER → 2025-02-08 | Outpatient (CLI) | payer OTHER, SELFPAY ==
--- NOTE | 2025-02-08 18:12 | STRESSREP ---
Stress Test Report Exercise stress test. 59-year-old man with a history of shortness of breath. Stress protocol: Resting EKG demonstrates normal sinus rhythm with a rate of 70 bpm resting blood pressure is 122/80 mmHg. there is a left bundle branch block pattern noted. The patient exercised according to the regular Raul protocol for a total duration of 6 minutes attaining a maximum heart rate of 151 bpm which was 93% of maximum predicted heart rate; the maximum workload was 7 metabolic equivalents. At rest there were no ST or T wave changes noted to suggest ischemia and at peak exercise upsloping ST changes only were noted which did not meet the criteria for ischemia. There were a left bundle branch block pattern precludes accurate assessment of EKG changes. No clinical angina was noted the test was terminated due to the target heart rate being achieved/fatigue. The peak blood pressure was 172/7 mmHg. Rate-pressure product was 25,800. Conclusion: Exercise stress test with no definitive EKG changes for ischemia at a moderate workload. No clinical angina noted
== END | disposition home or self-care (01) ==
LOC: CVS 09:24
PROVIDERS: PCP Family Medicine; Referring Provider Family Medicine; Visit Provider Family Medicine
DX: R06.02 Shortness of breath (principal); R73.09 Other abnormal glucose
CPT/HCPCS: 93017

== ENCOUNTER → 2025-05-31 | Outpatient (CLI) | payer OTHER, SELFPAY ==
--- NOTE | 2025-05-31 11:14 | RAD_ITS ---
PROCEDURE: CHEST PA AND LATERAL 05/31/2025 REASON FOR EXAM: COUGH, WHEEZE TECHNIQUE: Procedure Code: RADCXR Modality: DX Procedure: CHEST PA AND LATERAL COMPARISON: None FINDINGS: Hardware: None Heart: Heart size and configuration are within normal limits. Mediastinum: Mediastinum is unremarkable. Lungs: Lungs are expanded without evidence of atelectasis, consolidation, effusion, pneumonic infiltrate or pneumothorax. Bones: There is a subtle dextroscoliosis of the mid to lower thoracic spine. Spondylosis of the thoracic spine is noted. RAD/Chest PA and Lateral IMPRESSION: No acute cardiopulmonary process is identified radiographically. Reading Location: [id number]
== END | disposition home or self-care (01) ==
LOC: MTRAD 11:14
PROVIDERS: PCP Family Medicine; Referring Provider Family Medicine; Visit Provider Family Medicine
DX: J40 Bronchitis, not specified as acute or chronic (principal)
CPT/HCPCS: 71046

== ENCOUNTER 2025-06-20 07:11 | Emergency (ER) | payer OTHER, SELFPAY ==
[2025-06-20 07:12] VITALS: BP 150/91; PULSE 92; RESP 18; TEMP 36.6; O2SAT 97; BMI 39.5
--- NOTE | 2025-06-20 07:23 | VDLE_ITS ---
Reason For Study Reason For Study: SWELLING LLE RIGHT LEFT CFV is compressible, spontaneous, phasic, competent GSV is normal. and demonstrates normal augmentation. Acute deep vein thrombosis is noted in the CFV. It is Procedure dilated, NONCOMPRESSIBLE & demonstrates Exam performed portable in ED. mobility/progression. The study was technically difficult. Acute deep vein thrombosis is noted in the FV. It is A preliminary report was called and/or faxed to DR mathew and NONCOMPRESSIBLE. Isac Arcos @ 0945 am. Acute deep vein thrombosis is noted in the POP V. It is dilated and NONCOMPRESSIBLE. Acute deep vein thrombosis is noted in the Gastrocnemius V. It is dilated and NONCOMPRESSIBLE. Acute deep vein thrombosis is noted in the T/P Trunk. It is dilated and NONCOMPRESSIBLE. Acute deep vein thrombosis is noted in the PTV. It is dilated and NONCOMPRESSIBLE. Acute deep vein thrombosis is noted in the Per V. It is dilated and NONCOMPRESSIBLE. VL/Venous Duplex US, Unilateral Interpretation Summary Acute deep vein thrombosis noted in the left common femoral vein, femoral vein, popliteal vein, gastrocnemius vein, tibioperoneal trunk vein, posterior tibial vein, peroneal vein. Ordering Physician: Isac Arcos Referring Physician: Sagar Mccracken Performed By: Esmer Bello, WARREN, RVT
--- NOTE | 2025-06-20 07:23 | EX.ED.DYSGE1 ---
HPI History of Present Illness Chief Complaint: Lower Extremity Injury Narrative Narrative: Patient is a 59-year-old male who presented to the emergency department with a chief complaint of left leg swelling. Patient states that his leg started swelling on [place] he states that normally they do swell but by morning things improved. He notes that the swelling has not gotten any better and he believes that it is actually gotten worse and he is also having pain with ambulation therefore he came here to be further evaluated. 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 Patient denies any injury or trauma to his leg. PFSH PFS Home Medications ?Medication ?Instructions ?Recorded ?Last Taken ?Type dexamethasone 6 mg tablet 6 mg PO DAILY #7 tabs 05/28/25 Unknown Rx hydrochlorothiazide 12.5 mg tablet 12.5 mg PO QDAY 05/28/25 Unknown History lisinopril 40 mg tablet 40 mg PO QDAY 05/28/25 Unknown History pyrilamine 7.5 mg-dextromethorphan 5 ml PO .qid PRN cough #100 mL 05/28/25 Unknown Rx 7.5 mg/5 mL oral liquid ([place] DM) tadalafil 20 mg tablet mg PO 05/28/25 Unknown History rivaroxaban 15 mg (42)-20 mg (9) See Rx Instructions PO .COMPLEX 06/20/25 Unknown Rx tablets in a starter pack (Xarelto #51 tabs DVT-PE Treatment 30-Day Starter) Allergy/AdvReac Type Severity Reaction Status Date / Time No Known Allergies Allergy Verified 06/20/25 07:13 Social History Smoking Status: Never smoker ROS ROS ED ROS Narrative Constitutional: Denies fevers Cardiovascular: Denies chest pain Respiratory: Denies shortness of breath Neurological: Denies numbness, weakness, tingling Musculoskeletal: Complains of left leg pain and swelling as noted above Skin: Denies rashes or lesions EXAM Physical Exam Narrative Exam Narrative: General: Patient was lying in bed rest comfortably did not appear to be in acute distress Head: Atraumatic, normocephalic Eyes: PERRL bilaterally, EOMI bilaterally, no conjunctival injection noted Neck: Soft, supple, trachea midline Cardiovascular: Regular rate and rhythm Respiratory: Clear to auscultation bilaterally Musculoskeletal: Compartments are soft and compressible in the left lower extremity Extremities: +5/5 strength noted in the bilateral upper and lower extremities Neurological: Patient following commands knew that he was at [facility] year is 2024 sensation grossly intact Skin: Warm, dry, intact no rashes or lesions noted Const Vital Signs: 06/20/25 07:12 Temperature 98 F Temperature Source Oral Pulse Rate 92 Respiratory Rate 18 Blood Pressure 150/91 H Blood Pressure Mean 110 Pulse Ox 97 Oxygen Delivery Method Room Air MDM MDM MDM Narrative Medical decision making narrative: Patient is a 59-year-old male who presented to the emergency department with concern for left lower extremity swelling and pain. On the differential diagnose includes but not limited to venous insufficiency, DVT, superficial venous thrombosis. Once the workup is obtained reviewed he will be reevaluated Patient's ultrasound showed extensive clot burden in his left lower extremity. I discussed this with Dr. Dash who states that he will see him early on next week in the office and is recommending Eliquis or Xarelto. Patient was given first dose of Xarelto here in the emergency department with the prescription he was educated on if he falls hit his head or any other trauma or injuries he should return to the emergency department as he is at high risk for bleeding. He was educated on compartment syndrome as well. He is encouraged to return with worsening symptoms or any concerns he is agreeable this plan all question concerns answered discharged home in stable condition Discharge Plan Triage Chief Complaint: Lower Extremity Injury ED Provider: Isac Arcos Dx/Rx/DC Orders Clinical Impression: Acute leg pain, Left leg swelling, DVT (deep venous thrombosis) Instructions: DVT Tx Prescriptions: New Xarelto DVT-PE Treat 30d Start 15 mg (42)- 20 mg (9) tablets,dose pack See Rx Instructions .ROUTE .COMPLEX Qty: 51 0RF Rx Instructions: take one-15 mg tablet twice daily for 21 days, then one-20 mg tablet once daily; must take with meal/food No Action lisinopril 40 mg tablet 40 mg PO QDAY tadalafil 20 mg tablet PO hydrochlorothiazide 12.5 mg tablet 12.5 mg PO QDAY dexamethasone 6 mg tablet 6 mg PO DAILY Qty: 7 0RF pyrilamine-dextromethorphan [[place] DM] 7.5-7.5 mg/5 mL liquid 5 ml PO .qid PRN (Reason: cough) Qty: 100 0RF Primary Care Provider: Sagar Mccracken Referrals: Sagar Mccracken MD [Primary Care Provider, Family Practice] Kanu Dash MD [Med Staff - Active Staff, Vascular Surgery] Activity Restrictions/Additional Instructions: You were given your first dose of Xarelto here in the emergency department pharmacy picking tech prescription and take as prescribed. Follow-up with vascular surgery Dr. Dash in the beginning of next week call his office on Saturday for a appointment he is already aware that you need to be seen soon. If you fall hit your head you need to return to the emergency department immediately. Avoid high risk activities. If you are in an MVC or have other blunt trauma or injuries as well you need to return to the emergency department as you have been started on this blood thinning medication Xarelto for the extensive clots in your left leg. You will bruise and bleed more than normal. Print Language: [place] Disposition Disposition: Home, Self Care
--- OUTSIDE RECORDS SUMMARY | 2025-06-20 07:40 | XMS RPT_ITS | CCD ---
Author Organization [facility] Care Team Providers Care Consulting Services Associate Name Role Phone Dr. Rai Mccracken Primary Care Provider Dr. Rai Mccracken Referring Provider Annabelle MITCHELL, ELECTROSTATIC PAINT OPERATOR-Michael Ho Attending Provider [phone] JOHNNY Elizalde Attending Provider Dr. Sagar Mccracken Primary Care Provider Dr. Sagar Mccracken Referring Provider JOHNNY Elizalde Attending Provider JOHNNY Flanagan NP Attending Provider [phone] Nawaf LYNN, Dr. Keith Primary Care Provider Dr. Sagar Mccracken MD Referring Provider Faheem Bonilla Attending Provider Dr. Leroy Villarreal MD Attending Provider Dr. Leroy Villarreal MD Referring Provider [phone] Dr. Leroy Villarreal MD Other Provider Marquita LYNN, Dr. Teixeira Attending Provider Leroy Villarreal Attending Unavailable Sagar Mccracken Primary Care Unavailable Leroy Villarreal Attending Unavailable Leroy Villarreal Referring Unavailable Sagar Mccracken Primary Care Unavailable Sagar Mccracken Primary Care Unavailable Sagar Mccracken Referring Unavailable Faheem Bonilla Attending Unavailable Leroy Villarreal Consulting Unavailable Leroy Villarreal Referring Unavailable Puneet Juárez Attending Unavailable Sagar Mccracken Primary Care Unavailable Medications Current Medications Medication Drug Class(es) Dates Sig (Normalized) Sig (Original) amoxicillin 875 mg / clavulanate 125 mg oral tablet (2 sources) Penicillin-class Antibacterial Start: 10-27-2024 Amoxicillin-Pot Clavulanate 875-125 mg tablet Active 1 {tbl} PO TWICE A DAY 20 October 27, 2024 12:00am hydroCHLOROthiazide 12.5 mg / lisinopril 20 mg oral tablet (6 sources) Thiazide Diuretic, Angiotensin Converting Enzyme Inhibitor Start: 01-22-2019 Lisinopril-[place] chlorothiazide 1 EACH tablet Active 1 NMA PO DAILY January 22, 2019 12:00am HTN Start: 01-22-2019 Lisinopril-Hyd rochlorothiazide Active 1 EACH PO DAILY January 22, 2019 12:00am phenazopyridine hydrochloride 100 mg oral tablet (4 sources) Start: 07-07-2023 take 1 tablet by mouth at mealtime Phenazopyridine (Pyridium) 100 mg tablet Active 100 mg PO after meals July 07, 2023 1:00am Take with food. Do not take longer than 2 days- will change urine orange predniSONE 50 mg oral tablet (2 sources) Start: 10-27-2024 take 1 tablet by mouth once daily Prednisone 50 mg tablet Active 50 mg PO daily 6 October 27, 2024 12:00am Completed/Discontinued Medications Medication Drug Class(es) Dates Sig (Normalized) Sig (Original) acetaminophen 325 mg / HYDROcodone bitartrate 5 mg oral tablet (6 sources) Opioid Agonist Start: 05-24-2020 End: 05-27-2020 Hydrocodone-Acetami nophen 1 TABLET tablet Discontinued 1 {tbl} PO EVERY 6 HOURS NEEDED as needed for Pain 10 3 0 May 24, 2020 May 26, 2020 1:00am May 27, 2020 1:03am Rupture of quadriceps tendon Strain of unspecified quadriceps muscle, fascia and tendon, initial encounter Start: 05-24-2020 End: 05-27-2020 take 1 tablet by mouth every six hours as needed Hydrocodone-Acetaminophen Discontinued 1 TABLET PO EVERY 6 HOURS NEEDED 10 3 May 24, 2020 May 27, 2020 1:03am acetaminophen 325 mg / oxyCODONE hydrochloride 5 mg oral tablet (6 sources) Opioid Agonist Start: 06-01-2020 End: 06-06-2020 Oxycodone-Acetaminophen 1 TABLET tablet Discontinued 1 - 2 {tbl} PO EVERY 6 HOURS NEEDED as needed for Pain 28 5 Edy 9th, 2020 Edy 13th, 2020 1:00am June 06, 2020 1:03am Postoperative pain Other acute postprocedural pain Start: 06-01-2020 End: 06-06-2020 take 1 tablet by mouth every six hours as needed Oxycodone-Acetaminophen Discontinued 1 - 2 TABLET PO EVERY 6 HOURS NEEDED 18 11June 01, 2020 June 06, 2020 1:03am azithromycin 250 mg oral tablet (7 sources) Macrolide Antimicrobial Start: 10-13-2023 End: 10-27-2024 Azithromycin (Zithromax Z-Quique) 250 mg tablet Discontinued 0 PO .COMPLEX 6 0 October 13, 2023 12:00am October 27, 2024 8:27am For 250 mg dose pack: take 500 mg today (day 1), then 250 mg for 4 days (days 2-5) PO Start: 06-02-2023 End: 07-07-2023 Azithromycin 250 mg tablet D iscontinued 0 PO .COMPLEX 6 0 June 02, 2023 1:00am July 07, 2023 9:02am For 250 mg dose pack: take 500 mg today (day 1), then 250 mg for 4 days (days 2-5) PO Start: 06-02-2023 End: 07-07-2023 Azithromycin Discontinued 0 PO .COMPLEX 6 June 02, 2023 1:00am July 07, 2023 9:02am For 250 mg dose pack: take 500 mg today (day 1), then 250 mg for 4 days (days 2-5) PO ciprofloxacin 500 mg oral tablet (4 sources) Quinolone Antimicrobial Start: 07-07-2023 End: 07-17-2023 take 1 tablet by mouth twice daily Ciprofloxacin Hcl (Cipro) 500 mg tablet Discontinued 500 mg PO TWICE A DAY 20 10 July 07, 2023 1:00am July 16, 2023 1:00am July 17, 2023 1:04am meloxicam 15 mg oral tablet (6 sources) Nonsteroidal Anti-inflammatory Drug Start: 01-22-2019 End: 02-05-2019 take 1 tablet by mouth at bedtime Meloxicam 15 MG tablet Discontinued 15 mg PO AT BEDTIME January 22, 2019 12:00am February 05, 2019 9:26am PAIN oxyCODONE hydrochloride 5 mg oral tablet (6 sources) Opioid Agonist Start: 02-05-2019 End: 02-11-2019 take 5-10 mg by mouth every four hours as needed for pain Oxycodone 5 MG tablet Discontinued 5 - 10 mg PO EVERY 4 HOURS NEEDED as needed for Mod-Severe Pain (4-10/10) 30 4 0 February 05, 2019 February 08, 2019 12:00am February 11, 2019 12:06am Presence of right artificial hip joint Problems Problem Classification Problem Date Documented Da te Episodic/Chronic Other lower respiratory disease (5 sources) Cough; Translations: [Cough] 06-02-2023 Episodic Other lower respiratory disease (2 sources) Shortness of breath; Translations: [Shortness of breath] Onset: 03-08-2025 Episodic Other upper respiratory infections (6 sources) Upper respiratory infection; Translations: [Acute upper respiratory infection, unspecified] 06-02-2023 Episodic Sprains and strains (6 sources) Rupture of quadriceps tendon; Translations: [Strain of unspecified quadriceps muscle, fascia and tendon, initial encounter] 05-26-2020 Episodic Urinary tract infections (2 sources) Urinary tract infection, site not specified; Translations: [Urinary tract infection, site not specified] 07-07-2023 Episodic Results Test Name Value Interpretation Reference Range Facility Cardiovascular stress test r eportOrdered By: Puneet Juárez on 02-08-2025 Study report [facility] [address] [place] [address] MR#: [id number] Acct: [id number] Name: LILLIAM HOLLINS Rep #: [id number] : 1965 59 From: Puneet Juárze MD Primary Care: Dr. Sagar Mccracken MD Status: REG CLI Referring Dr: Leroy Villarreal MD Sex: M C Stress Test Report Exercise stress test. 59-year-old man with a history of shortness of breath. Stress protocol: Resting EKG demonstrates normal sinus rhythm with a rate of 70 bpm resting bloodpressure is 122/80 mmHg. there is a left bundle branch block pattern noted. Thepatient exercised according to the regular Raul protocol for a total duration of 6 minutes attaining a maximum heart rate of 151 bpm which was 93% of maximum predicted heart rate; the maximum workload was 7 metabolic equivalents. At rest there were no ST or T wave changes noted to suggest ischemia and at peak exercise upsloping ST changes only were noted which did not meet the criteria for ischemia. There were a left bundle branch block pattern precludes accurate assessment of EKG changes. No clinical angina was noted the test was terminateddue to the target heart rate being achieved/fatigue. The peak blood pressure crs662/7 mmHg. Rate-pressure product was 25,800. Conclusion: Exercise stress test with no definitive EKG changes for ischemia at a moderate workload. No clinical angina noted 02/08/251813 Date _ Puneet Juárez MD CC: Dr. Sagar Mccracken MD; Dr. Leroy Villarreal MD ~ Date Dictated: 02/08/251811 Date Transcribed: 02/08/251811 International Manager: [place] Signed [facility] Work Phone: Stress Reporton 02-08-2025 Stress Report [facility] [address] [id number] MR#: [id number] Acct: [id number] Name: LILLIAM HOLLINS Rep #: [id number] : 1965 59 From: Puneet Juárez MD Primary Care: Dr. Sagar Mccracken MD Status: REG CLI Referring Dr: Leroy Villarreal MD Sex: M C Stress Test Report Exercise stress test. 59-year-old man with a history of shortness of breath. Stress protocol: Resting EKG demonstrates normal sinus rhythm with a rate of 70 bpm resting blood pressure is 122/80 mmHg. there is a left bundle branch block pattern noted. The patient exercised according to the regular Raul protocol for a total duration of 6 minutes attaining a maximum heart rate of 151 bpm which was 93% of maximum predicted heart rate; the maximum workload was 7 metabolic equivalents. At rest there were no ST or T wave changes noted to suggest ischemia and at peak exercise upsloping ST changes only were noted which did not meet the criteria for ischemia. There were a left bundle branch block pattern precludes accurate assessment of EKG changes. No clinical angina was noted the test was terminated due to the target heart rate being achieved/fatigue. The peak blood pressure was 172/7 mmHg. Rate-pressure product was 25,800. Conclusion: Exercise stress test with no definitive EKG changes for ischemia at a moderate workload. No clinical angina noted 02/08/251813 Date Puneet Juárez MD CC: Dr. Sagar Mccracken MD; Dr. Leroy Villarreal MD Date Dictated: 02/08/251811 Date Transcribed: 02/08/251811 International Manager: [place] Signed Normal [facility] Absolute lymphocyte countOrd ered By: Leroy Villarreal on 01-21-2025 Lymphocytes Auto (Unsp spec) [#/Vol] 1.47 10*3/uL 0.83-4.51 [facility] Absolute neutrophil countOrd ered By: Leroy Villarreal on 01-21-2025 Neutrophils (Bld) [#/Vol] 7.8 10*3/uL High 2.0-7.7 [facility] Anion gap in Serum or Plasma Ordered By: Leroy Villarreal on 01-21-2025 Anion gap [Moles/Vol] 11 mmol/L 5-15 [facility] Automated lymphocyte count a s percentage of total leukocytesOrdered By: Leroy Villarreal on 01-21-2025 Lymphocytes/100 WBC Auto (Unsp spec) 14.1 % Low 19-41 [facility] BUN/creatinine ratioOrdered By: Leroy Villarreal on 01-21-2025 Urea nitrogen/Creatinine [Mass ratio] 14.7 mg/mg 10- [facility] Basic Metabolic Profile (BMP )on 01-21-2025 BUN/CRE 14.7 RATIO Normal - [facility] Comment on above: Performed By: #### L 100.0100, L500.2500 #### [facility] [address] [place], [address] Calcium [Mass/Vol] 9.6 mg/dL Normal 7.6-11.0 [facility] Comment on above: Performed By: #### L 100.0100, L500.2500 #### [facility] [address] [place], [address] Chloride [Moles/Vol] 101 mmol/L Normal 98-108 [facility] Comment on above: Performed By: #### L 100.0100, L500.2500 #### [facility] [address] [place], [address] CO2 [Moles/Vol] 26.1 mmol/L Normal 21.0-32.0 [facility] Comment on above: Performed By: #### L 100.0100, L500.2500 #### [facility] [address] [place], [address] Creatinine [Mass/Vol] 1.27 mg/dL High 0.70-1.20 [facility] Comment on above: Performed By: #### L 100.0100, L500.2500 #### [facility] [address] [place], [address] GAP 11 Normal 5-15 [facility] Comment on above: Performed By: #### L 100.0100, L500.2500 #### [facility] [address] [place], [address] GFR/1.73 sq M.predicted among non-blacks MDRD (S/P/Bld) [Vol rate/Area] 65 mL/min/{1.73_m2} Normal >60 [facility] Comment on above: Result Comment: mL/m in/1.73m2 CKD-EPI Creatinine Equation (2020) Performed By: #### L 100.0100, L500.2500 #### [facility] [address] [place], [address] Glucose [Mass/Vol] 122 mg/dL High 70-99 [facility] Comment on above: Performed By: #### L 100.0100, L500.2500 #### [facility] [address] [place], [address] Potassium [Moles/Vol] 4.3 mmol/L Normal 3.3-5.1 [facility] Comment on above: Performed By: #### L 100.0100, L500.2500 #### [facility] [address] [place], [address] Sodium [Moles/Vol] 137 mmol/L Normal 133-145 [facility] Comment on above: Performed By: #### L 100.0100, L500.2500 #### [facility] [address] [place], [address] Urea nitrogen [Mass/Vol] 19 mg/dL Normal 4-19 [facility] Comment on above: Performed By: #### L 100.0100, L500.2500 #### [facility] [address] [place], [address] Basophil percentageOrdered B y: Leroy Villarreal on 01-21-2025 Basophils/100 WBC (Bld) 0.4 % 0-1 [facility] CBC W/Diff, Automatedon 07- Absolute Lymph 1.47 X10 3/uL Normal 0.83-4.51 [facility] Comment on above: Performed By: #### L 100.0100, L500.2500 #### [facility] [address] [place], [address] Absolute Neut 7.8 X10 3/uL High 2.0-7.7 [facility] Comment on above: Performed By: #### L 100.0100, L500.2500 #### [facility] [address] [place], [address] Basophils/100 WBC (Bld) 0.4 % Normal 0-1 [facility] Comment on above: Performed By: #### L 100.0100, L500.2500 #### [facility] [address] [place], [address] Eosinophils/100 WBC (Bld) 1.1 % Normal 0-5 [facility] Comment on above: Performed By: #### L 100.0100, L500.2500 #### [facility] [address] [place], [address] Erythrocyte distribution width (RBC) [Ratio] 12.6 % Normal 11.6-14.6 [facility] Comment on above: Performed By: #### L 100.0100, L500.2500 #### [facility] [address] [place], [address] Hematocrit (Bld) [Volume fraction] 46.3 % Normal 40-54 [facility] Comment on above: Performed By: #### L 100.0100, L500.2500 #### [facility] [address] [place], [address] Hemoglobin (Bld) [Mass/Vol] 15.5 g/dL Normal 13.0-16.5 [facility] Comment on above: Performed By: #### L 100.0100, L500.2500 #### [facility] [address] [place], [address] IG% 0.700 Normal 0.0-0.9 [facility] Comment on above: Result Comment: IG% - Immature Granulocytes (promyelocytes, myelocytes and metamyelocytes) > 1% indicates that a LEFT SHIFT is Present. Performed By: #### L 100.0100, L500.2500 #### [facility] [address] [place], [address] Lymphocytes/100 WBC (Bld) 14.1 % Low 19-41 [facility] Comment on above: Performed By: #### L 100.0100, L500.2500 #### [facility] [address] [place], [address] MCH (RBC) [Entitic mass] 31.8 pg Normal 27.0-32.0 [facility] Comment on above: Performed By: #### L 100.0100, L500.2500 #### [facility] [address] [place], [address] MCHC (RBC) [Mass/Vol] 33.5 g/dL Normal 32-36 [facility] Comment on above: Performed By: #### L 100.0100, L500.2500 #### [facility] [address] [place], [address] MCV (RBC) [Entitic vol] 94.9 fL High 80-94 [facility] Comment on above: Performed By: #### L 100.0100, L500.2500 #### [facility] [address] [place], [address] Monocytes/100 WBC (Bld) 9.4 % Normal 0-10 [facility] Comment on above: Performed By: #### L 100.0100, L500.2500 #### [facility] [address] [place], [address] Neutrophils/100 WBC (Bld) 74.3 % High 47-70 [facility] Comment on above: Performed By: #### L 100.0100, L500.2500 #### [facility] [address] [place], [address] Nucleated RBC (Bld) [#/Vol] 0 10*3/uL Normal 0-5 [facility] Comment on above: Performed By: #### L 100.0100, L500.2500 #### [facility] [address] [place], [address] Platelet mean volume (Bld) [Entitic vol] 8.8 fL Normal 6.2-12.0 [facility] Comment on above: Performed By: #### L 100.0100, L500.2500 #### [facility] [address] [place], [address] Platelets (Bld) [#/Vol] 220 10*3/uL Normal 150-450 [facility] Comment on above: Performed By: #### L 100.0100, L500.2500 #### [facility] [address] [place], [address] RBC (Bld) [#/Vol] 4.88 10*6/uL Normal 4.6-6.2 [facility] Comment on above: Performed By: #### L 100.0100, L500.2500 #### [facility] [address] [place], [address] RDW SD 43.9 fl Normal 35.1-43.9 [facility] Comment on above: Performed By: #### L 100.0100, L500.2500 #### [facility] [address] [place], [address] WBC (Bld) [#/Vol] 10.4 10*3/uL Normal 4.4-11.0 [facility] Comment on above: Performed By: #### L 100.0100, L500.2500 #### [facility] [address] [place], [address] Carbon dioxide, total [Moles /volume] in Central venous bloodOrdered By: Leroy Villarreal on 01-21-2025 CO2 [Moles/Vol] 26.1 mmol/L 21.0-32.0 [facility] Chloride assayOrdered By: Armani Villarreal on 01-21-2025 Chloride [Moles/Vol] 101 mmol/L 98-108 [facility] Eosinophil percentageOrdered By: Leroy Villarreal on 01-21-2025 Eosinophils/100 WBC (Bld) 1.1 % 0-5 [facility] Erythrocyte distribution wid th ratioOrdered By: Leroy Villarreal on 01-21-2025 Erythrocyte distribution width (RBC) [Ratio] 12.6 % 11.6-14.6 [facility] Erythrocyte distribution wid th standard deviationOrdered By: Leroy Villarreal on 01-21-2025 Erythrocyte distribution width (RBC) [Ratio] 43.9 fl 35.1-43.9 [facility] Glomerular filtration rate ( GFR) estimation/1.73 sq m using serum, plasma, or whole bOrdered By: Leroy Villarreal on 01-21-2025 GFR/1.73 sq M.predicted among non-blacks MDRD (S/P/Bld) [Vol rate/Area] 65 mL/min/{1.73_m2} >60 [facility] Comment on above: mL/min/1.73m2 CKD-EP I Creatinine Equation (2020) Hematocrit Auto (Bld) [Volum e fraction]Ordered By: Leroy Villarreal on 01-21-2025 Hematocrit (Bld) [Volume fraction] 46.3 % 40-54 [facility] Hemoglobin measurementOrdere d By: Leroy Villarreal on 01-21-2025 Hemoglobin (Bld) [Mass/Vol] 15.5 g/dL 13.0-16.5 [facility] Immature granulocytes/100 WB C Auto (Bld)Ordered By: Leroy Villarreal on 01-21-2025 Immature granulocytes/100 WBC (Bld) 0.700 % 0.0-0.9 [facility] Comment on above: IG% - Immature Granu locytes (promyelocytes, myelocytes and metamyelocytes) > 1% indicates that a LEFT SHIFT is Present. MCV (mean corpuscular volume ) determinationOrdered By: Leroy Villarreal on 01-21-2025 MCV (RBC) [Entitic vol] 94.9 fL High 80-94 [facility] Mean corpuscular hemoglobin (MCH) determinationOrdered By: Leroy Villarreal on 01-21-2025 MCH (RBC) [Entitic mass] 31.8 pg 27.0-32.0 [facility] Mean corpuscular hemoglobin concentration (MCHC) determinationOrdered By: Leroy Villarreal on 01-21-2025 MCHC (RBC) [Mass/Vol] 33.5 g/dL 32-36 [facility] Mean platelet volume determi nationOrdered By: Leroy Villarreal on 01-21-2025 Platelet mean volume (Bld) [Entitic vol] 8.8 fL 6.2-12.0 [facility] Monocyte percentageOrdered B y: Leroy Villarreal on 01-21-2025 Monocytes/100 WBC (Bld) 9.4 % 0-10 [facility] Neutrophil percentageOrdered By: Leroy Villarreal on 01-21-2025 Neutrophils/100 WBC (Bld) 74.3 % High 47-70 [facility] Nucleated red blood cell per centageOrdered By: Leroy Villarreal on 01-21-2025 Nucleated RBC/100 WBC (Bld) [Ratio] 0 % 0-5 [facility] Platelet countOrdered By: Armani Villarreal on 01-21-2025 Platelets (Bld) [#/Vol] 220 10*3/uL 150-450 [facility] Potassium measurement (mass/ volume)Ordered By: Leroy Villarreal on 01-21-2025 Potassium (Unsp spec) [Mass/Vol] 4.3 mmol/L 3.3-5.1 [facility] RBC Auto (Bld) [#/Vol]Ordere d By: Leroy Villarreal on 01-21-2025 RBC (Bld) [#/Vol] 4.88 10*6/uL 4.6-6.2 [facility] Serum creatinine measurement (mass/volume)Ordered By: Leroy Villarreal on 01-21-2025 Creatinine [Mass/Vol] 1.27 mg/dL High 0.70-1.20 [facility] Serum glucose measurement (m ass/volume)Ordered By: Leroy Villarreal on 01-21-2025 Glucose [Mass/Vol] 122 mg/dL High 70-99 [facility] Serum or plasma calcium immanuel urement (mass/volume)Ordered By: Leroy Villarreal on 01-21-2025 Calcium [Mass/Vol] 9.6 mg/dL 7.6-11.0 [facility] Serum or plasma urea nitroge n measurement (mass/volume)Ordered By: Leroy Villarreal on 01-21-2025 Urea nitrogen [Mass/Vol] 19 mg/dL 4-19 [facility] Sodium levelOrdered By: Leroy Villarreal on 01-21-2025 Sodium [Moles/Vol] 137 mmol/L 133-145 [facility] White blood cell (WBC) count Ordered By: Leroy Villarreal on 01-21-2025 WBC (Bld) [#/Vol] 10.4 10*3/uL 4.4-11.0 [facility] 10-27-[facility] Urgent Care Visit Report [facility] [address], [address] [place] [address] OFFICE VISIT Date of Service: 10/27/24 MR#: [id number] Acct: [id number] Name: LILLIAM HOLLINS Rep #: [id number] : 1965 Provider: ARMANI Carrion Age/Sex: 59/M Location: [email or web address] Status: Signed Intake Vital Signs 06/02/23 08:30 10/27/24 08:32 Height 6 ft 1 in BP 120/76 Position Sitting Pulse 101 H Temp 99.0 F Temp Source Oral Pulse Oximetry (%) 97 Oxygen Delivery Method room air Intake Visit Reasons: CHEST/SINUS JAYY/R SIDE FACIAL SWELLING Allergies No Known Allergies Allergy (Verified 10/13/23 10:11) Medications ???Medication ???Instructions ???Recorded ???Confirmed ???Type lisinopril 20 1 ea PO DAILY HTN 01/22/19 5 History mg-hydrochlorothiaz ameya 12.5 mg tablet phenazopyridine 100 mg tablet 100 mg PO QPC 6 doses #6 tabs 06/2410/27/24 Rx (Pyridium) amoxicillin 875 mg-potassium 1 tab PO BID #20 tabs 10/27/2412/16 Rx clavulanate 125 mg tablet prednisone 50 mg tablet 50 mg PO QDAY #6 tabs 10/27/2412/16 Rx Nurse's Note: Patient is concerned for chest infection. Patient has a cough and sinus pressure and drainage that has been going on for 3 days. Patient states that his right lip on top was swollen this morning. [facility] Social History (Updated 09/19/20 @ 10:15 by ARMANI Estrada) Smoking Status: Never smoker HPI HPI Details: LILLIAM HOLLINS, is a 59 M who presents to the office today for [facility] evaluation at the [facility] for approximately 5-7 day history of progressively worsening facial pressure/congestion with purulent postnasal drip/cough and bilateral ear pressure - along with new onset of right upper and lower lips edematous swelling after taking Mucinex last evening (without complaints of constricted/pruriti c airway or chest pain/shortness of breath/wheeze/dyspn ea on exertion). No complaints of fever, chills, myalgias, fatigue, runny nose, or nausea/vomiting/janina rrhea. Non-smoker. No other associated symptoms and no other alleviating/aggrava ting factors. ROS Const Constitutional: No other (as above) Exam Const General: cooperative, healthy appearing and no acute distress Nutritional Appearance: average body habitus Orientation: alert, awake and oriented x3 HENMT Head: normal to inspection Ears: hearing grossly normal bilaterally, external ears normal, TM's normal bilaterally and EAC's normal Nose: external nose normal, nares normal, septum normal and no nasal discharge Face and sinus: normal facial exam, sinuses nontender (Though bilateral maxillary fullness to palpation) and face symmetric Mouth: oral mucosae normal, lip normal (except trace edematous swelling to right upper lip and right lower lip), tongue normal and oropharynx normal Throat: posterior oropharynx normal, tonsils normal, uvula midline and postnasal drainage (Purulent) Eyes General: appearance normal, both eyes and all related structures Neck Neck: normal visual inspection, full ROM, no meningeal signs, supple and lymphadenopathy (Bilateral anterior cervical lymph node swelling/tender to palpation) Neck mass: No Thyroid: thyroid normal Chest Chest palpation inspection: normal inspection of the chest Resp Effort Inspection: normal respiratory effort and able to speak in complete sentences with moist nonproductive cough x 1 episode in office today Auscultation: Bilateral: Clear to Auscultation Cardio Palpation: normal PMI Rate: Tachycardia Rhythm: regular rhythm Heart Sounds: S1 normal, S2 normal, no gallops, no murmurs and no rubs Pulses: radial pulses present GI Inspection: normal to inspection Skin General: no rashes or lesions noted Neuro General: patient alert, patient awake and patient oriented x3 Cognition: normal cognition Speech: speech normal Psych Appearance: grossly normal Mental Status: mental status grossly normal Mood: congruent mood Affect: normal affect Speech and Movement: speech and movement normal Attitude: cooperative Diagnoses Acute maxillary sinusitis, unspecified J01.00 Angioedema T78.3XXA Assessment and Plan Assessment and Plan (1) Acute maxillary sinusitis, unspecified: Status: Acute (2) Angioedema: Status: Acute Plan: Augmentin and prednisone as prescribed today. Stop Mucinex use. Declined work excuse upon offering. Supportive measures as instructed today. Follow-up with PCP in 3 to 5 days should symptoms not improve, sooner should symptoms worsen or any other concerns develop. Patient states acknowledging understanding all the above. Coding Level of Care Code Off vis,est,level 3 Assessment and Plan Assessment and Plan Medications: New amoxicillin-pot clavulanate 875-125 mg 1 TAB PO BID 20 tabs 0RF (more content not included)... Normal [facility] Basophil percentageOrdered B y: Sagar Mccracken on 10-16-2023 Chloride [Moles/Vol] 104 mmol/L 98-107 [facility] Cholesterol [Mass/Vol] 112 mg/dL <200 [facility] Comment on above: <200 mg/dL Desirable 200-240 mg/dL Borderline >240 mg/dL High Risk Glucose [Mass/Vol] 94 mg/dL 74-106 [facility] Potassium [Moles/Vol] 3.7 mmol/L 3.5-5.1 [facility] Sodium [Moles/Vol] 136 mmol/L 136-145 [facility] Triglyceride [Mass/Vol] 146 mg/dL <199 [facility] Comment on above: The drugs N-Acetylcy steine and Metamizole may falsely depress this assay.Serum Triglycerides Reference Interval Normal <150 mg/dL Borderline high 150 - 199 mg/dL High 200 - 499 mg/dL Very High > or = 500 mg/dL Laboratory - Chemistry and C hemistry - challengeOrdered By: Sagar Mccracken on 10-16-2023 Cholesterol in HDL [Mass/Vol] 32 mg/dL >40 [facility] Comment on above: The drugs N-Acetylcy steine and Metamizole may falsely depress this assay. Reference Range HDL <40 mg/dL Low HDL Cholesterol HDL >or= 60 mg/dL High HDL Cholesterol Cholesterol in LDL [Mass/Vol] 51 mg/dL 0-130 [facility] CO2 [Moles/Vol] 26.0 mmol/L 21.0-32.0 [facility] Urea nitrogen/Creatinine [Mass ratio] 13.2 mg/mg 10-20 [facility] No Panel InformationOrdered By: Sagar Mccracken on 10-16-2023 Estimated GFR (MDRD) Amer 85 mL/min >60 [facility] Comment on above: GFR Calc Estimated GFR (MDRD) Non-Af Amer 70 mL/min >60 [facility] Comment on above: Non- GFR Calc Prostate Specific Antigen Screen 2.67 ng/mL 0.00-4.00 [facility] Comment on above: This test was perfor med using the TPSA assay method for the[employer] chemistry system. Values obtained with differentassay methods cannot be used interchangably.When changing PSA assays in the course of monitoring apatient, additional sequential testing should be carriedout to confirm baseline values. VLDL Cholesterol 29 mg/dL 5-40 [facility] Serum or plasma calcium immanuel urement (mass/volume)Ordered By: Sagar Mccracken on 10-16-2023 Calcium [Mass/Vol] 9.2 mg/dL 8.5-10.1 [facility] Serum or plasma creatinine m easurement (mass/volume)Ordered By: Sagar Mccracken on 10-16-2023 Creatinine [Mass/Vol] 1.14 mg/dL 0.70-1.30 [facility] Comment on above: The validity of the calculated GFR & GFRAA in patients over 70 years has not been determined. Clinical correlation is essential. Serum or plasma urea nitroge n measurement (mass/volume)Ordered By: Sagar Mccracken on 10-16-2023 Urea nitrogen [Mass/Vol] 15 mg/dL 7-18 [facility] Thin prep Papanicolaou smear with manual screeningOrdered By: Sagar Mccracken on 10-16-2023 Thin prep Papanicolaou smear with manual screening 6 5-15 [facility] Culture, urineOrdered By: Sang Elizalde on 07-08-2023 Bacteria identified Cx Nom (U) Culture exhibits no growth. [facility] Bacteria identified Cx Nom (U) Culture exhibits no growth. [facility] Laboratory - Chemistry and C hemistry - challengeon 07-07-2023 Bilirubin Ql (U) Negative [facility] Glucose Ql (U) Negative [facility] Ketones Ql (U) Negative [facility] pH (U) 6.0 [pH] [facility] Specific gravity (U) [Rel density] 1.020 [facility] Urobilinogen (U) [Mass/Vol] Negative [facility] Laboratory - Hematology and Cell countson 07-07-2023 Hemoglobin Ql (U) Moderate [facility] Laboratory - Specimen inform ationon 07-07-2023 Clarity (U) Cloudy [facility] Color (U) Dk Yellow [facility] Laboratory - Urinalysison Nitrite Ql (U) Negative [facility] Protein Ql (U) Trace [facility] No Panel Informationon 07-07 Urine Leukocytes Positive [facility] Urine Non-Hemolyzed Blood [facility] Basophil percentageon 2021 Chloride [Moles/Vol] 102 mmol/L 98-107 [facility] Work Phone: Cholesterol [Mass/Vol] 110 mg/dL <200 [facility] Work Phone: Comment on above: <200 mg/dL Desirable 200-240 mg/dL Borderline >240 mg/dL High Risk Glucose [Mass/Vol] 85 mg/dL 74-106 [facility] Work Phone: Potassium [Moles/Vol] 3.8 mmol/L 3.5-5.1 [facility] Work Phone: Sodium [Moles/Vol] 137 mmol/L 136-145 [facility] Work Phone: Triglyceride [Mass/Vol] 98 mg/dL <199 [facility] Work Phone: Comment on above: The drugs N-Acetylcy steine and Metamizole may falsely depress this assay.Serum Triglycerides Reference Interval Normal <150 mg/dL Borderline high 150 - 199 mg/dL High 200 - 499 mg/dL Very High > or = 500 mg/dL Basophil percentage 0-5 SEEN /hpf 0-5 [facility] Work Phone: Bilirubin Test strip Ql (U)o n 01-30-2022 Bilirubin Ql (U) Negative Negative [facility] Work Phone: Ketones Test strip Ql (U)on 01-30-2022 Ketones Ql (U) Negative Negative [facility] Work Phone: Laboratory - Chemistry and C hemistry - challengeon 01-30-2022 CO2 [Moles/Vol] 29.0 mmol/L 21.0-32.0 [facility] Work Phone: Urea nitrogen/Creatinine [Mass ratio] 15.4 mg/mg 10-20 [facility] Work Phone: Mucus LM Ql (Urine sed)on Mucus Ql (Urine sed) 0 SEEN /hpf [facility] Work Phone: Nitrite Test strip Ql (U)on 01-30-2022 Nitrite Ql (U) Negative Negative [facility] Work Phone: No Panel Informationon 01-30 Estimated GFR (MDRD) Amer 95 mL/min >60 [facility] Work Phone: Comment on above: GFR Calc Estimated GFR (MDRD) Non-Af Amer 78 mL/min >60 [facility] Work Phone: Comment on above: Non- GFR Calc Prostate Specific Antigen Screen 2.28 ng/mL 0.00-4.00 [facility] Work Phone: Comment on above: This test was perfor med using the TPSA assay method for the[facility] system. Values obtained with differentassay methods cannot be used interchangably.When changing PSA assays in the course of monitoring apatient, additional sequential testing should be carriedout to confirm baseline values. Protein Test strip Ql (U)on 01-30-2022 Protein Ql (U) Negative Negative [facility] Work Phone: Serum or plasma calcium immanuel urement (mass/volume)on 01-30-2022 Calcium [Mass/Vol] 9.1 mg/dL 8.5-10.1 [facility] Work Phone: Serum or plasma cholesterol in HDL measurement (mass/volume)on 01-30-2022 Cholesterol in HDL [Mass/Vol] 32 mg/dL >40 [facility] Work Phone: Comment on above: The drugs N-Acetylcy steine and Metamizole may falsely depress this assay. Reference Range HDL <40 mg/dL Low HDL Cholesterol HDL >or= 60 mg/dL High HDL Cholesterol Serum or plasma cholesterol in VLDL measurement (mass/volume)on 01-30-2022 Cholesterol in VLDL [Mass/Vol] 20 mg/dL 5-40 [facility] Work Phone: Serum or plasma creatinine m easurement (mass/volume)on 01-30-2022 Creatinine [Mass/Vol] 1.04 mg/dL 0.70-1.30 [facility] Work Phone: Comment on above: The validity of the calculated GFR & GFRAA in patients over 70 years has not been determined. Clinical correlation is essential. Serum or plasma low density lipoprotein (LDL) cholesterol measurement (mass/volume)on 01-30-2022 Cholesterol in LDL [Mass/Vol] 58 mg/dL 0-130 [facility] Work Phone: Serum or plasma urea nitroge n measurement (mass/volume)on 01-30-2022 Urea nitrogen [Mass/Vol] 16 mg/dL 7-18 [facility] Work Phone: Squamous epithelial cells de tection in urine sediment by light microscopyon 01-30-2022 Epithelial cells.squamous LM Ql (Urine sed) 0-5 SEEN /hpf 0-5 [facility] Work Phone: Thin prep Papanicolaou smear with manual screeningon 01-30-2022 Thin prep Papanicolaou smear with manual screening 6 5-15 [facility] Work Phone: Urine blood detectionon RBC Ql (U) Negative Negative [facility] Work Phone: RBC Ql (U) 0 SEEN /hpf 0-5 [facility] Work Phone: Urine clarityon 01-30-2022 Clarity (U) Clear Clear [facility] Work Phone: Urine color determinationon 01-30-2022 Color (U) Yellow Yellow [facility] Work Phone: Urine glucose detectionon Glucose Ql (U) Normal mg/dl Normal [facility] Work Phone: Urine leukocyte esterase det ection by dipstickon 01-30-2022 Leukocyte esterase Test strip Ql (U) 25 /ul Negative [facility] Work Phone: Urine pHon 01-30-2022 pH (U) 6.0 [pH] 5.0 - 8.0 [facility] Work Phone: Urine sediment bacteria coun t by microscopy (number/high power field)on 01-30-2022 Bacteria LM.HPF (Urine sed) [#/Area] RARE /hpf None Seen [facility] Work Phone: Urine specific gravity measu rementon 01-30-2022 Specific gravity (U) [Rel density] 1.020 1.002-1.030 [facility] Work Phone: Urobilinogen Auto test strip Ql (U)on 01-30-2022 Urobilinogen Ql (U) Normal mg/dl Normal [facility] Work Phone: Laboratory - Microbiology an d Antimicrobial susceptibilityon 11-09-2021 SARS-CoV-2 (COVID-19) RNA RAI+probe Ql (Unsp spec) Not detected Not Detect [facility] Work Phone: Comment on above: Normal Reference Ran ge: Not DetectedMethod:(RT-PCR) real-time reverse transcriptase PCRLuminex SAM Instrument*The Food and Drug Administration (FDA) has issued an Emergency Use Authorization (EAU) for the SAM SARS-CoV-2 Assay for the rapid detection of the virus that causes COVID-19. This test has been validated, but the FDAs independent review of this validation is pending.*Negative results do not preclude infection and should not be used as the sole basis for treatment or patient management. Optimum specimen types and timing for peak viral levels during infections caused by SARS-CoV-2 have not been determined. Collection of multiple specimens from the same patient may be necessary to detect the virus. The possibility of a false negative result should be considered if the patient has clinical presentation or has had recent exposure. No Panel Informationon 11-09 Respiratory Panel (PCR) [facility] Work Phone: No Panel Information Respiratory Panel (PCR) [facility] Work Phone: Vital Signs Date Time Vital Sign Value Performing Clinician Faci lity 10-27-2024 08:32-0400 Body temperature 99 [degF] Dr. Sagar Mccracken MD Work Phone: [facility] 10-27-2024 08:32-0400 Diastolic blood pressure 76 mm[Hg] Dr. Sagar Mccracken MD Work Phone: [facility] 10-27-2024 08:32-0400 Heart rate 101 /min Dr. Sagar Mccracken MD Work Phone: [facility] 10-27-2024 08:32-0400 SaO2% (BldA) [Mass fraction] 97 % Dr. Sagar Mccracken MD Work Phone: [facility] 10-27-2024 08:32-0400 Systolic blood pressure 120 mm[Hg] Dr. Sagar Mccracken MD Work Phone: [facility] 10-13-2023 10:11-0400 Body temperature 98.1 [degF] Dr. Sagar Mccracken Work Phone: [facility] 10-13-2023 10:11-0400 Diastolic blood pressure 84 mm[Hg] Dr. Sagar Mccracken Work Phone: [facility] 10-13-2023 10:11-0400 Heart rate 93 /min Dr. Sagar Mccracken Work Phone: [facility] 10-13-2023 10:11-0400 Respiratory rate 15 /min Dr. Sagar Mccracken Work Phone: [facility] 10-13-2023 10:11-0400 SaO2% (BldA) [Mass fraction] 97 % Dr. Sagar Mccracken Work Phone: [facility] 10-13-2023 10:11-0400 Systolic blood pressure 132 mm[Hg] Dr. Sagar Mccracken Work Phone: [facility] 07-07-2023 07:57-0500 Body temperature 97.9 [degF] Dr. Rai Mccracken Work Phone: [phone] [address] 07-07-2023 07:57-0500 Diastolic blood pressure 70 mm[Hg] Dr. Rai Mccracken Work Phone: 0(389)[phone] [address] 07-07-2023 07:57-0500 Heart rate 102 /min Dr. Rai Mccracken Work Phone: [phone](055)[phone] [address] 07-07-2023 07:57-0500 Respiratory rate 17 /min Dr. Rai Mccracken Work Phone: [facility] 07-07-2023 07:57-0500 SaO2% (BldA) [Mass fraction] 96 % Dr. Rai Mccracken Work Phone: [facility] 07-07-2023 07:57-0500 Systolic blood pressure 138 mm[Hg] Dr. Rai Mccracken Work Phone: [facility] 06-02-2023 08:30-0500 Body height 185.[address] Rai Mccracken Work Phone: [facility] 06-02-2023 08:30-0500 Body mass index (BMI) [Ratio] 39.8 kg/m2 Dr. Rai Mccracken Work Phone: [facility] 06-02-2023 08:30-0500 Body temperature 98.7 [degF] Dr. Rai Mccracken Work Phone: [facility] 06-02-2023 08:30-0500 Body weight 136.[address] Rai Mccracken Work Phone: [facility] 06-02-2023 08:30-0500 Diastolic blood pressure 88 mm[Hg] Dr. Rai Mccracken Work Phone: [facility] 06-02-2023 08:30-0500 Heart rate 100 /min Dr. Rai Mccracken Work Phone: [facility] 06-02-2023 08:30-0500 Respiratory rate 14 /min Dr. Rai Mccracken Work Phone: [facility] 06-02-2023 08:30-0500 SaO2% (BldA) [Mass fraction] 94 % Dr. Rai Mccracken Work Phone: [facility] 06-02-2023 08:30-0500 Systolic blood pressure 132 mm[Hg] Dr. Rai Mccracken Work Phone: [facility] Encounters Encounter Date Encounter Type Care Provider Facility Start: 02-08-2025 ambulatory [facility] Facility:[facility] Start: 02-08-2025 Non-patient / Non-visit Dr. Puneet Juárez MD -[facility] Start: 02-08-2025 End: 02-08-[address] Sagar Mccracken MD Work Phone: -Cardiovascular Services Start: 02-08-2025 End: 02-08-[address] Leroy Villarreal MD -[facility] Work Phone: Start: 02-08-2025 End: 02-08-2025 ambulatory Leroy Villarreal Facility:[facility] Start: 01-21-2025 End: 01-21-[address] Sagar Mccracken MD Work Phone: -Laboratory [facility] Start: 01-21-2025 End: 01-21-[address] Leroy Villarreal MD -Laboratory [facility] Start: 01-21-2025 End: 01-21-2025 ambulatory Leroy Cherelle Facility:[facility] Start: 10-27-2024 End: 10-27-2024 Patient encounter procedure Faheem Zapien [facility] Work Phone: Start: 10-27-2024 End: 10-27-2024 ambulatory Sagar Mccracken Facility:[facility] Start: 10-16-2023 End: 10-16-[address] Sagar Mccracken Work Phone: [facility] Work Phone: Start: 10-16-2023 End: 10-16-[address] Sagar Mccracken Work Phone: [facility], [facility] Start: 10-13-2023 End: 10-13-[address] Sagar Mccracken Work Phone: [facility] Work Phone: Start: 07-08-2023 End: 07-08-[address] Rai Mccracken Work Phone: [facility] Work Phone: Start: 07-08-2023 End: 07-08-[address] [facility] Work Phone: Start: 07-07-2023 End: 07-07-[address] Rai Mccracken Work Phone: [facility] Work Phone: Start: 06-02-2023 End: 06-02-[address] Rai Mccracken Work Phone: [facility] Work Phone: Start: 01-30-2022 End: 01-30-2022 [facility] Start: 11-09-2021 End: 11-09-2021 [facility] Procedures Date Procedure Procedure Detail Performing Clinician Start: 07-08-[address] Ernst Mccracken Work Phone: Start: 11-09-2021 Respiratory Panel (PCR) Respiratory Panel (PCR) Payers Date Payer Category Payer Self-pay [id number] 2024 Unknown [id number] Unknown [id number] Unknown [id number] [id number] Unknown [id number] Unknown [id number] Unknown [id number] Social History Date Type Detail Facility Start: 09-19-2020 End: 07-07-2023 Tobacco smoking status NVIS Unknown if ever smoked [facility] Start: 05-27-2020 [facility] [place] Start: 1965 Sex Assigned At Male [facility] Start: 07-07-2023 Tobacco smoking stat us NVIS Never smoked tobacco (finding) [facility] Medical Equipment Procedure Code Equipment Code Equipment Origin al Text Equipment Identifier Dates Minimally invasive total replacement of hip joint by anterior approach ACCOLADE NECK ANGLE HIP STEM FDA Start: 02-04-2019 Minimally invasive total replacement of hip joint by anterior approach BIOLOX V40 FEMORAL HEAD FDA Start: 02-04-2019 Minimally invasive total replacement of hip joint by anterior approach TRIDENT ACETABULAR SHELL FDA Start: 02-04-2019 Minimally invasive total replacement of hip joint by anterior approach TRIDENT POLYETHYLENE INSERT FDA Start: 02-04-2019 Minimally invasive total replacement of hip joint by anterior approach ACCOLADE NECK ANGLE HIP STEM FDA Start: 02-04-2019 Minimally invasive total replacement of hip joint by anterior approach BIOLOX V40 FEMORAL HEAD FDA Start: 02-04-2019 Minimally invasive total replacement of hip joint by anterior approach TRIDENT ACETABULAR SHELL FDA Start: 02-04-2019 Minimally invasive total replacement of hip joint by anterior approach TRIDENT POLYETHYLENE INSERT FDA Start: 02-04-2019 Minimally invasive total replacement of hip joint by anterior approach ACCOLADE NECK ANGLE HIP STEM FDA Start: 02-04-2019 Minimally invasive total replacement of hip joint by anterior approach BIOLOX V40 FEMORAL HEAD FDA Start: 02-04-2019 Minimally invasive total replacement of hip joint by anterior approach TRIDENT ACETABULAR SHELL FDA Start: 02-04-2019 Minimally invasive total replacement of hip joint by anterior approach TRIDENT POLYETHYLENE INSERT FDA Start: 02-04-2019 Minimally invasive total replacement of hip joint by anterior approach ACCOLADE NECK ANGLE HIP STEM FDA Start: 02-04-2019 Minimally invasive total replacement of hip joint by anterior approach BIOLOX V40 FEMORAL HEAD FDA Start: 02-04-2019 Minimally invasive total replacement of hip joint by anterior approach TRIDENT ACETABULAR SHELL FDA Start: 02-04-2019 Minimally invasive total replacement of hip joint by anterior approach TRIDENT POLYETHYLENE INSERT FDA Start: 02-04-2019 Minimally invasive total replacement of hip joint by anterior approach ACCOLADE NECK ANGLE HIP STEM FDA Start: 02-04-2019 Minimally invasive total replacement of hip joint by anterior approach BIOLOX V40 FEMORAL HEAD FDA Start: 02-04-2019 Minimally invasive total replacement of hip joint by anterior approach TRIDENT ACETABULAR SHELL FDA Start: 02-04-2019 Minimally invasive total replacement of hip joint by anterior approach TRIDENT POLYETHYLENE INSERT FDA Start: 02-04-2019 Minimally invasive total replacement of hip joint by anterior approach ACCOLADE NECK ANGLE HIP STEM FDA Start: 02-04-2019 Minimally invasive total replacement of hip joint by anterior approach BIOLOX V40 FEMORAL HEAD FDA Start: 02-04-2019 Minimally invasive total replacement of hip joint by anterior approach TRIDENT ACETABULAR SHELL FDA Start: 02-04-2019 Minimally invasive total replacement of hip joint by anterior approach TRIDENT POLYETHYLENE INSERT FDA Start: 02-04-2019 IMPLANT SYSTEM ACL/PCL REPAIR FDA Start: 06-01-2020 SWIVELOCK,4.75 DOUBLE LOCK FDA Start: 06-01-2020 IMPLANT SYSTEM ACL/PCL REPAIR FDA Start: 06-01-2020 SWIVELOCK,4.75 DOUBLE LOCK FDA Start: 06-01-2020 IMPLANT SYSTEM ACL/PCL REPAIR FDA Start: 06-01-2020 SWIVELOCK,4.75 DOUBLE LOCK FDA Start: 06-01-2020 IMPLANT SYSTEM ACL/PCL REPAIR FDA Start: 06-01-2020 SWIVELOCK,4.75 DOUBLE LOCK FDA Start: 06-01-2020 IMPLANT SYSTEM ACL/PCL REPAIR FDA Start: 06-01-2020 SWIVELOCK,4.75 DOUBLE LOCK FDA Start: 06-01-2020 IMPLANT SYSTEM ACL/PCL REPAIR FDA Start: 06-01-2020 SWIVELOCK,4.75 DOUBLE LOCK FDA Start: 06-01-2020 Evaluation note Note Date & Type Note Facility Evaluation note No assessment information availa ble [facility] Work Phone: Evaluation note Note Date & Type Note Facility Evaluation note Diagnosis Onset Date Cough acute Upper respiratory infection acute Urinary tract infection none active [facility] Work Phone: Evaluation note Note Date & Type Note Facility Evaluation note Diagnosis Onset Date Urinary tract infection none active Upper respiratory infection acute [facility] Work Phone: Reason for referral (narrative) Note Date & Type Note Facility Reason for referral (narrative) No reason for referral information available [facility] Work Phone: Advance Directives No Advanced Directives Records Found Advance Directive Response Recorded Date/ Time Living Will No May 27 12:37pm Power of Lumber Bearer No May 27, 2020 12:37pm Advance Directive Response Recorded Date/ Time Living Will No June 02, 023 8:05am Power of Lumber Bearer No June 02, 2023 8:05am Advance Directive Response Recorded Date/ Time Living Will No June 02, 023 9:05am Power of Lumber Bearer No June 02, 2023 9:05am Chief Complaint and Reason for Visit Chief Complaint COUGH/CONGESTION Urinary tract infection Reason for Visit Cough Upper respiratory infection Urinary tract infection Chief Complaint Urinary tract infect ion Cough Reason for Visit Urinary tract infect ion Upper respiratory infection Chief Complaint Admit Date CHEST/SINUS JAYY/R SIDE FACIAL SWELLING October 27, 2024 8:26am Chief Complaint Admit Date CHEST/SINUS JAYY/R SIDE FACIAL SWELLING October 27, 2024 8:26am SOB February 08, 2025 9: 19am Shortness of breath February 08, 2025 6: 12pm Summary Purpose Family History No Family History Records Found Additional Source Comments Goals (unrecognized section and content) Goals may be documented in a n alternate sectionGoals may be documented in an alternate sectionGoals may be documented in an alternate sectionGoals may be documented in an alternate sectionGoals may be documented in an alternate section Care Teams (unrecognized sec tion and content) Team Status: Active Member Role Status Dates Dr. Rai Mccracken MD Family Provider Active Dr. Rai Mccracken MD Primary Care Provider Activ e Team Status: Inactive Member Role Status Dates Dr. Rai Mccracken MD Primary Care Provider, Refe rring Provider Active Patricia Alanis ELECTROSTATIC PAINT OPERATOR, ELECTROSTATIC PAINT OPERATOR-C Attending Provider Active Team Status: Inactive Member Role Status Dates Dr. Rai Mccracken MD Primary Care Provider, Refe rring Provider Active Regine Elizalde , ELECTROSTATIC PAINT OPERATOR-C Attending Provider Active Team Status: Inactive Member Role Status Dates Dr. Rai Mccracken MD Primary Care Provider Activ e Regine Elizalde , ELECTROSTATIC PAINT OPERATOR-C Attending Provider, Referring Provider Active Team Status: Active Member Role Status Dates Dr. Sagar Mccracken MD Family Provider Active Dr. Sagar Mccracken MD Primary Care Provider Acti ve Team Status: Inactive Member Role Status Dates Dr. Sagar Mccracken MD Primary Care Provider, Ref erring Provider Active Regine Elizalde , ELECTROSTATIC PAINT OPERATOR-C Attending Provider Active Team Status: Inactive Member Role Status Dates Dr. Sagar Mccracken MD Primary Care Provider, Ref erring Provider Active Derick Flanagan NP, ELECTROSTATIC PAINT OPERATOR-C Attending Provider Active Team Status: Inactive Member Role Status Dates Dr. Sagar Mccracken MD Primary Care Provider Acti ve Regine Elizalde , ELECTROSTATIC PAINT OPERATOR-C Attending Provider, Referring Provider Active Team Status: Inactive Member Role Status Dates Dr. Sagar Mccracken MD Primary Care Provider, Att ending Provider Active Team Status: Active Member Role/Relationship Status Dates Dr. Sagar Mccracken MD Primary Care Provider Acti ve Team Status: Inactive Member Role/Relationship Status Dates Dr. Sagar Mccracken MD Primary Care Provider Acti ve Start: October 27, 2024 End: October 27, 2024 Dr. Sagar Mccracken MD Referring Provider Active Start: October 27, 2024 End: October 27, 2024 Faheem Zapien PA, PA Attending Provider Active Start: October 27, 2024 End: October 27, 2024 Team Status: Inactive Member Role/Relationship Status Dates Dr. Sagar Mccracken MD Primary Care Provider Acti ve Start: January 21, 2025 End: January 21, 2025 Dr. Leroy Villarreal MD Attending Provider Active Start: January 21, 2025 End: January 21, 2025 Team Status: Inactive Member Role/Relationship Status Dates Dr. Sagar Mccracken MD Primary Care Provider Acti ve Start: February 08, 2025 End: February 08, 2025 Dr. Leroy Villarreal MD Attending Provider Active Start: February 08, 2025 End: February 08, 2025 Dr. Leroy Villarreal MD Referring Provider Active Start: February 08, 2025 End: February 08, 2025 Team Status: Active Member Role/Relationship Status Dates Dr. Sagar Mccracken MD Primary Care Provider Acti ve Start: February 08, 2025 Dr. Leroy Villarreal MD Referring Provider Active Start: February 08, 2025 Dr. Leroy Villarreal MD Other Provider Active Star t: February 08, 2025 Dr. Puneet Juárez MD Attending Provider Active S tart: February 08, 2025 (unrecognized sect ion and content) No Status Records Found INFORMATION SOURCE (unrecogn ized section and content) DATE CREATED AUTHOR 03/09/2025 [facility] FOR RECORDS PERTAINING TO PATIENTS WHO ARE OR HAVE BEEN ENROLLED IN A CHEMICAL DEPENDENCY/SUBSTANCEABUSE PROGRAM, SOME INFORMATION MAY BE OMITTED. This clinical summary was aggregated from multiple sources. Caution should be exercised in using it in the provision of clinical care. This summary normalizes information from multiple sources, and as a consequence, information in this document may materially change the coding, format and clinical context of patient data. In addition, data may be omitted in some cases. CLINICAL DECISIONS SHOULD BE BASED ON THE PRIMARY CLINICAL RECORDS. [employer] provides no warranty or guarantee of the accuracy or completeness of information in this document.
[2025-06-20 08:03] VITALS: BMI 38.9
[2025-06-20 10:20] VITALS: BP 141/78; PULSE 89; RESP 18; TEMP 36.6; O2SAT 99
== END 2025-06-20 10:21 | disposition home or self-care (01) ==
PROVIDERS: Emergency Provider Emergency Medicine; PCP Family Medicine; Visit Provider Emergency Medicine
DX: I82.412 Acute embolism and thrombosis of left femoral vein (principal); I82.432 Acute embolism and thrombosis of left popliteal vein; I82.462 Acute embolism and thrombosis of left calf muscular vein; I82.442 Acute embolism and thrombosis of left tibial vein; I82.452 Acute embolism and thrombosis of left peroneal vein; Z79.01 Long term (current) use of anticoagulants
CPT/HCPCS: 93971; 99282